=== PATIENT | female | born 1995 | race American Indian/Alaskan Native ===

== ENCOUNTER 2016-12-01 21:01 | Emergency (ER) | payer MEDICAID ==
--- NOTE | 2016-12-01 21:42 | EDM.PDOC ---
<Felipe Gonzalez - Last Filed: 12/01/16 22:11> ED HPI GENERAL MEDICAL PROBLEM - General Chief Complaint: Abdominal Pain Stated Complaint: ABDOMINAL/BACK PAIN Time Seen by Provider: 12/01/16 21:41 Source of Information: Reports: Patient History Limitations: Reports: No Limitations - History of Present Illness INITIAL COMMENTS - FREE TEXT/NARRATIVE: History of present illness: [21-year-old female comes in complaining of right upper epigastric pain. Patient indicates she has seen in an outside facility and they told her that she could be having gallbladder issues and it was important for follow-up outpatient for further diagnostic evaluation. Patient presents today indicating that the pain is intolerable.] Review of systems: As per history of present illness and below otherwise all systems reviewed and negative. Past medical history: As per history of present illness and as reviewed below otherwise noncontributory. Surgical history: As per history of present illness and as reviewed below otherwise noncontributory. Social history: No reported history of drug or alcohol abuse. Family history: As per history of present illness and as reviewed below otherwise noncontributory. Physical exam: HEENT: Atraumatic, normocephalic, pupils reactive, negative for conjunctival pallor or scleral icterus, mucous membranes moist, throat clear, neck supple, nontender, trachea midline. Lungs: Clear to auscultation, breath sounds equal bilaterally, chest nontender. Heart: S1S2, regular, negative for clicks, rubs, or JVD. Abdomen: Soft, protuberant abdomen with right upper quadrant pain worse with mild palpation. Pain originating in right upper quadrant immediately beneath the diaphragm and radiating to left upper quadrant. Negative for masses or hepatosplenomegaly. Negative for costovertebral tenderness. Pelvis: Stable nontender. Genitourinary: Deferred. Rectal: Deferred. Extremities: Atraumatic, negative for cords or calf pain. Neurovascular unremarkable. Neuro: Awake, alert, oriented. Cranial nerves II through XII unremarkable. Cerebellum unremarkable. Motor and sensory unremarkable throughout. Exam nonfocal. Diagnostics: [BC, CMP, UA, amylase, lipase CT of abdomen] Therapeutics: [IV fluid, Toradol] Impression: [] Plan: [] Definitive disposition and diagnosis as appropriate pending reevaluation and review of above. Upper Abdominal Pain Score (Numeric/FACES): 9 - Related Data Allergies Allergy/AdvReac Type Severity Reaction Status Date / Time cephalexin [From Keflex] Allergy throat Verified 12/01/16 21:17 swelling latex Allergy Swelling Verified 12/01/16 21:17 Home Meds: Home Meds . [No Known Home Meds] 12/01/16 [History] ED ROS GENERAL - Review of Systems Review Of Systems: See Below (See history of present illness) ED EXAM, GI/ABD - Physical Exam Exam: See Below (See history of present illness) Course - Vital Signs Last Recorded V/S: Last Vital Signs Temp 36.5 C 12/01/16 21:18 Pulse 74 12/01/16 21:18 Resp 16 12/01/16 21:18 BP 125/61 12/01/16 21:18 Pulse Ox 98 12/01/16 21:18 - Orders/Labs/Meds Orders: Active Orders 24 hr Category Date Time Status Abdomen Ltd [US] Stat Exams 12/02/16 00:43 Taken OB 1st Tri Ea Addl Gest [US] Stat Exams 12/02/16 00:02 Taken Labs: Laboratory Tests 12/01/16 12/01/16 12/01/16 Range/Units 21:25 21:25 21:49 WBC 13.98 H (4.0-11.0) K/uL RBC 4.31 (4.30-5.90) M/uL Hgb 13.1 (12.0-16.0) g/dL Hct 37.7 (36.0-46.0) % MCV 87.5 (80.0-98.0) fL MCH 30.4 (27.0-32.0) pg MCHC 34.7 (31.0-37.0) g/dL RDW Std Deviation 41.5 (28.0-62.0) fl RDW Coeff of Laura 13 (11.0-15.0) % Plt Count 285 (150-400) K/uL MPV 9.50 (7.40-12.00) fL Add Manual Diff YES Neutrophils % (Manual) 68 (48.0-80.0) % Lymphocytes % (Manual) 28 (16.0-40.0) % Monocytes % (Manual) 2 (0.0-15.0) % Basophils % (Manual) 2 H (0.0-1.5) % Nucleated RBC % 0.0 /100WBC Absolute Seg Neuts 9.5 H (1.4-5.7) Lymphocytes # (Manual) 3.9 H (0.6-2.4) Monocytes # (Manual) 0.3 (0.0-0.8) Basophils # (Manual) 0.3 H (0.0-0.1) Nucleated RBCs # 0 K/uL Sodium (136-146) mmol/L Potassium (3.5-5.1) mmol/L Chloride (98-110) mmol/L Carbon Dioxide (21-31) mmol/L BUN (6.0-23.0) mg/dL Creatinine (0.6-1.5) mg/dL Est Cr Clr Drug Dosing Estimated GFR (MDRD) ml/min Glucose (60-110) mg/dL Calcium (8.8-10.8) mg/dL Total Bilirubin (0.1-1.5) mg/dL AST (5-40) IU/L ALT (8-54) IU/L Alkaline Phosphatase (40-150) Total Protein (6.0-8.0) g/dL Albumin (3.5-5.0) g/dL Globulin (2.0-3.5) g/dL Albumin/Globulin Ratio (1.3-2.8) Amylase (10-90) U/L Lipase (7-80) U/L HCG, Quant mIU/mL Urine Color YELLOW Urine Appearance HAZY Urine pH 5.5 (5.0-8.0) Ur Specific [place] >= 1.030 (1.001-1.035) Urine Protein NEGATIVE (NEGATIVE) mg/dL Urine Glucose (UA) NEGATIVE (NEGATIVE) mg/dL Urine Ketones NEGATIVE (NEGATIVE) mg/dL Urine Occult Blood NEGATIVE (NEGATIVE) Urine Nitrite NEGATIVE (NEGATIVE) Urine Bilirubin NEGATIVE (NEGATIVE) Urine Urobilinogen 0.2 (<2.0) EU/dL Ur Leukocyte Esterase NEGATIVE (NEGATIVE) Urine RBC 1-2 (0-2/HPF) Urine WBC 0-2 (0-5/HPF) Ur Epithelial Cells MODERATE (NONE-FEW) Urine Bacteria FEW (NEGATIVE) Urine HCG, Qual POSITIVE (NEGATIVE) 12/01/16 12/01/16 12/01/16 Range/Units 21:49 21:49 21:49 WBC (4.0-11.0) K/uL RBC (4.30-5.90) M/uL Hgb (12.0-16.0) g/dL Hct (36.0-46.0) % MCV (80.0-98.0) fL MCH (27.0-32.0) pg MCHC (31.0-37.0) g/dL RDW Std Deviation (28.0-62.0) fl RDW Coeff of Laura (11.0-15.0) % Plt Count (150-400) K/uL MPV (7.40-12.00) fL Add Manual Diff Neutrophils % (Manual) (48.0-80.0) % Lymphocytes % (Manual) (16.0-40.0) % Monocytes % (Manual) (0.0-15.0) % Basophils % (Manual) (0.0-1.5) % Nucleated RBC % /100WBC Absolute Seg Neuts (1.4-5.7) Lymphocytes # (Manual) (0.6-2.4) Monocytes # (Manual) (0.0-0.8) Basophils # (Manual) (0.0-0.1) Nucleated RBCs # K/uL Sodium 138 (136-146) mmol/L Potassium 4.0 (3.5-5.1) mmol/L Chloride 109 (98-110) mmol/L Carbon Dioxide 19 L (21-31) mmol/L BUN 13 (6.0-23.0) mg/dL Creatinine 0.7 (0.6-1.5) mg/dL Est Cr Clr Drug Dosing TNP Estimated GFR (MDRD) > 60.0 ml/min Glucose 105 (60-110) mg/dL Calcium 8.9 (8.8-10.8) mg/dL Total Bilirubin 0.3 (0.1-1.5) mg/dL AST 14 (5-40) IU/L ALT 18 (8-54) IU/L Alkaline Phosphatase 69 (40-150) Total Protein 6.8 (6.0-8.0) g/dL Albumin 3.6 (3.5-5.0) g/dL Globulin 3.2 (2.0-3.5) g/dL Albumin/Globulin Ratio 1.1 L (1.3-2.8) Amylase 74 (10-90) U/L Lipase 31 (7-80) U/L HCG, Quant 03675.7 mIU/mL Urine Color Urine Appearance Urine pH (5.0-8.0) Ur Specific [place] (1.001-1.035) Urine Protein (NEGATIVE) mg/dL Urine Glucose (UA) (NEGATIVE) mg/dL Urine Ketones (NEGATIVE) mg/dL Urine Occult Blood (NEGATIVE) Urine Nitrite (NEGATIVE) Urine Bilirubin (NEGATIVE) Urine Urobilinogen (<2.0) EU/dL Ur Leukocyte Esterase (NEGATIVE) Urine RBC (0-2/HPF) Urine WBC (0-5/HPF) Ur Epithelial Cells (NONE-FEW) Urine Bacteria (NEGATIVE) Urine HCG, Qual (NEGATIVE) Meds: Medications Discontinued Medications Generic Name Dose Route Start Last Admin Trade Name Freq PRN Reason Stop Dose Admin Sodium Chloride 1,000 mls @ 999 mls/hr 12/01/16 21:43 12/01/16 21:50 Normal Saline IV 12/01/16 22:43 999 mls/hr STAT ONE Administration Ketorolac Tromethamine 30 mg 12/01/16 21:43 12/01/16 21:51 Toradol IVPUSH 12/01/16 21:44 30 mg ONETIME ONE Administration Departure - Departure Disposition: Home, Self-Care 01 Clinical Impression: First trimester , Cholelithiasis - Discharge Information Referrals: PCP,None [Primary Care Provider] - Forms: ED Department Discharge Additional Instructions: The following information is given to patients seen in the emergency department who are being discharged to home. This information is to outline your options for follow-up care. We provide all patients seen in our emergency department with a follow-up referral. The need for follow-up, as well as the timing and circumstances, are variable depending upon the specifics of your emergency department visit. If you don't have a primary care physician on staff, we will provide you with a referral. We always advise you to contact your personal physician following an emergency department visit to inform them of the circumstance of the visit and for follow-up with them and/or the need for any referrals to a consulting specialist. The emergency department will also refer you to a specialist when appropriate. This referral assures that you have the opportunity for followup care with a specialist. All of these measure are taken in an effort to provide you with optimal care, which includes your followup. Under all circumstances we always encourage you to contact your private physician who remains a resource for coordinating your care. When calling for followup care, please make the office aware that this follow-up is from your recent emergency room visit. If for any reason you are refused follow-up, please contact the [facility] emergency department at and asked to speak to the emergency department charge nurse. [facility] - [facility] [address] [place] [id number] [facility] - General Surgery Professional Building [address] [place] [address], [address] [place] [address] [facility] above in general surgery as discussed diet as discussed return as needed as discussed - My Orders Last 24 Hours: My Active Orders 12/02/16 00:02 OB 1st Tri Ea Addl Gest [US] Stat 12/02/16 00:43 Abdomen Ltd [US] Stat - Assessment/Plan Last 24 Hours: My Active Orders 12/02/16 00:02 OB 1st Tri Ea Addl Gest [US] Stat 12/02/16 00:43 Abdomen Ltd [US] Stat <Edson Ramos - Last Filed: 12/02/16 01:43> Departure - Departure Time of Disposition: 01:42 Condition: Good
[2016-12-01] MEDS ORDERED: Sodium Chloride 0.9% 1,000 ML IV ONE (21:43)
[2016-12-01] MEDS ORDERED: Ketorolac 30 MG/ML SDV IVPUSH ONE (21:43)
[2016-12-01 22:21] LABS: CHLORIDE,CL 109 mmol/L (98-110); SODIUM,NA 138 mmol/L (136-146)
--- NOTE | 2016-12-02 10:49 | US ---
EXAM DATE: 12/01/16 PATIENT'S AGE: 21 Patient: MORENA GUDINO Facility: [place], [place] Site . Site : 1995 Study: OB Pelvis [id number] 12:48:00 AM Ordering Physician: Doctor Norman Final Report: INDICATION: Irregular menses, positive test. TECHNIQUE: Ultrasound OB pelvis transvaginal. Real time olson scale imaging of the pelvis was performed. COMPARISON: None FINDINGS: Sonographic imaging demonstrates a single intrauterine gestation. The embryo demonstrates a regular cardiac rate measuring 179 beats per minute. The embryo` s crown rump length measurement of 22 mm corresponds to a gestational age of 8 weeks 6 days. Composite crown-rump length measurements and gestational sac measurement demonstrate estimated gestational age of 8 weeks 4 days. There is a normal appearing yolk sac. There are no gross abnormalities noted within the embryo at this early state of development. The placenta has not yet developed. The gestational sac has a normal appearance and there is no evidence of a perigestational hemorrhage. The amount of fluid within the sac appears appropriate for gestational age. Bilateral ovarian cysts are identified. Right ovarian cyst measures 3.4 centimeters. Left ovarian cyst measures 3.6 centimeters. IMPRESSION: 1. Single viable intrauterine with an estimated gestational age of 8 weeks 4 days based on composite measurements of crown rump length and gestational sac. Current ultrasound DANIELA 07/10/2017. Dictated by Daniel Espinosa MD @ 12/02/2016 1:06:09 AM Dictated by: Daniel Espinosa MD @ 12/02/2016 01:06:15 (Electronic Signature) Report Signed by Proxy. MTDD
--- NOTE | 2016-12-02 10:49 | US ---
EXAM DATE: 12/01/16 PATIENT'S AGE: 21 Patient: MORENA GUDINO Facility: [place], [place] Site . Site : 1995 Study: US Abdomen [id number] 1:03:36 AM Ordering Physician: Doctor Norman Final Report: INDICATION: Abdominal pain. TECHNIQUE: Ultrasound abdomen limited. Sonographic images of the right upper quadrant were obtained using olson-scale and color Doppler images. COMPARISON: None. FINDINGS: Liver: Visualized portions liver parenchyma echogenic relative to the adjacent right renal cortex, compatible with fatty infiltration. Gallbladder: Shadowing gallstone at the gallbladder neck, measuring 2.3 centimeters. Sonographic Kumar`s sign. Gallbladder wall thickness within normal limits, measuring 2 millimeters. No pericholecystic fluid. Common bile duct: 3 mm. Pancreas: Unremarkable. Right kidney: 12.9 cm. Normal echotexture and cortex. No masses, stones, or hydronephrosis. Vasculature: Proximal abdominal aorta and IVC are unremarkable. IMPRESSION: 1. Cholelithiasis with reported positive sonographic Kumar sign. No other imaging findings to indicate acute cholecystitis or abnormal biliary dilatation. 2. Fatty infiltration of liver. Dictated by Daniel Espinosa MD @ 12/02/2016 1:09:22 AM Dictated by: Daniel Espinosa MD @ 12/02/2016 01:09:28 (Electronic Signature) Report Signed by Proxy. DASH
== END 2016-12-02 01:55 | disposition home or self-care (01) ==
LOC: MW.ED 21:01
DX: O99.611 Diseases of the digestive system complicating pregnancy, first trimester (principal); Z88.1 Allergy status to other antibiotic agents; Z91.040 Latex allergy status; Z3A.08 8 weeks gestation of pregnancy
CPT/HCPCS: 36415; 76705; 76802; 80053; 81001; 81025; 82150; 83690; 84702; 85025; 96361; 96374; 99284; J1885; J7040; 76801; 76805; 76805-26

== ENCOUNTER 2017-01-17 17:16 | Emergency (ER) | payer MEDICAID ==
[2017-01-17] MEDS ORDERED: Lidocaine/EPINEPHrine/Tetracaine Soln 1 ML TOP ONE (17:32)
--- NOTE | 2017-01-17 17:34 | EDM.PDOC ---
ED HPI GENERAL MEDICAL PROBLEM - General Chief Complaint: Laceration Stated Complaint: PT HURT LT HAND Time Seen by Provider: 01/17/17 17:28 Source of Information: Reports: Patient History Limitations: Reports: No Limitations - History of Present Illness INITIAL COMMENTS - FREE TEXT/NARRATIVE: History of present illness: []Patient was doing dishes and did not see a knife in the sink and stabbed her left hand. She put "new skin" on it. Patient also states that she is 3 months and got a fall today and landed on her abdomen. Denies any abdominal pain, vaginal bleeding or discharge. Review of systems: As per history of present illness and below otherwise all systems reviewed and negative. Past medical history: As per history of present illness and as reviewed below otherwise noncontributory. Surgical history: As per history of present illness and as reviewed below otherwise noncontributory. Social history: No reported history of drug or alcohol abuse. Family history: As per history of present illness and as reviewed below otherwise noncontributory. Physical exam: General: Well developed, well nourished in NAD HEENT: Atraumatic, normocephalic, pupils reactive, negative for conjunctival pallor or scleral icterus, mucous membranes moist, throat clear, neck supple, nontender, trachea midline. Lungs: Clear to auscultation, breath sounds equal bilaterally, chest nontender. Heart: S1S2, regular, negative for clicks, rubs, or JVD. Abdomen: Soft, nondistended, nontender. Negative for masses or hepatosplenomegaly. Negative for costovertebral tenderness. heart tones 164 Pelvis: Stable nontender. Genitourinary: Deferred. Rectal: Deferred. Extremities: Atraumatic, negative for cords or calf pain. Neurovascular unremarkable. Neuro: Awake, alert, oriented. Cranial nerves II through XII unremarkable. Cerebellum unremarkable. Motor and sensory unremarkable throughout. Exam nonfocal. Diagnostics: Patient she was doing the dishes and did not see a knife in the sink and stabbed her hand Therapeutics: []Wound sutured Impression: []Laceration left thumb Plan: []Sutures out in 7-10 days Definitive disposition and diagnosis as appropriate pending reevaluation and review of above. 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 Musculoskeletal History: Reports: None Neurological History: Reports: None Psychiatric History: Reports: None Endocrine/Metabolic History: Reports: None Dermatologic History: Reports: Cellulitis - Infectious Disease History Infectious Disease History: Reports: None - Past Surgical History HEENT Surgical History: Reports: None Cardiovascular Surgical History: Reports: None Respiratory Surgical History: Reports: None Female Surgical History: Reports: None Social & Family History - Tobacco Use Smoking Status *Q: Never Smoker Second Hand Smoke Exposure: No ED ROS GENERAL - Review of Systems Review Of Systems: See Below (See history of present illness) ED EXAM, SKIN/RASH Exam: See Below (See history of present illness) Course - Vital Signs Last Recorded V/S: Last Vital Signs Temp 98.1 F 01/17/17 17:54 Pulse 85 01/17/17 17:54 Resp 18 01/17/17 17:54 BP 105/79 01/17/17 17:54 Pulse Ox 99 01/17/17 17:54 - Orders/Labs/Meds Meds: Medications Discontinued Medications Generic Name Dose Route Start Last Admin Trade Name Freq PRN Reason Stop Dose Admin Lidocaine/Tetracaine 1 ml 01/17/17 17:32 01/17/17 18:01 Let Soln TOP 01/17/17 17:33 1 ml ONETIME ONE Administration Octyl Cyanoacrylate 1 applic 01/17/17 17:52 01/17/17 18:00 Dermabond Advance TOP 01/17/17 17:53 1 applic ONETIME ONE Administration Departure - Departure Time of Disposition: 18:25 Disposition: Home, Self-Care 01 Condition: Good Clinical Impression: Hand laceration Qualifiers: Encounter type: initial encounter Foreign body presence: without foreign body Laterality: left Qualified Code(s): S61.412A - Laceration without foreign body of left hand, initial encounter - Discharge Information Referrals: PCP,None [Primary Care Provider] - Forms: ED Department Discharge Additional Instructions: The following information is given to patients seen in the emergency department who are being discharged to home. This information is to outline your options for follow-up care. We provide all patients seen in our emergency department with a follow-up referral. The need for follow-up, as well as the timing and circumstances, are variable depending upon the specifics of your emergency department visit. If you don't have a primary care physician on staff, we will provide you with a referral. We always advise you to contact your personal physician following an emergency department visit to inform them of the circumstance of the visit and for follow-up with them and/or the need for any referrals to a consulting specialist. The emergency department will also refer you to a specialist when appropriate. This referral assures that you have the opportunity for follow-up care with a specialist. All of these measure are taken in an effort to provide you with optimal care, which includes your follow-up. Under all circumstances we always encourage you to contact your private physician who remains a resource for coordinating your care. When calling for follow-up care, please make the office aware that this follow-up is from your recent emergency room visit. If for any reason you are refused follow-up, please contact the [facility] Emergency Department at and asked to speak to the emergency department charge nurse. Sutures out in 7-10 days Tylenol Motrin for pain keep dry for 24 hours follow up with her primary care as needed return here if symptoms worsen or change. [facility] [address] [place] [id number]
[2017-01-17] MEDS ORDERED: Octyl 2-Cyanoacrylate 1 Tube TOP ONE (17:52)
[2017-01-17] MEDS ORDERED: Bacitracin Oint 1 GM U/D Packet TOP ONE (18:31)
== END 2017-01-17 18:43 | disposition home or self-care (01) ==
LOC: MW.ED 17:16
DX: O9A.211 Injury, poisoning and certain other consequences of external causes complicating pregnancy, first trimester (principal); S61.012A Laceration without foreign body of left thumb without damage to nail, initial encounter; Z91.040 Latex allergy status; Z88.1 Allergy status to other antibiotic agents; W26.0XXA Contact with knife, initial encounter
CPT/HCPCS: 12001; 99283; A9270

== ENCOUNTER 2017-01-22 00:49 | Emergency (ER) | payer MEDICAID ==
[2017-01-22] MEDS ORDERED: Acetaminophen/Codeine 300-30 MG Tab PO ONE (01:15)
--- NOTE | 2017-01-22 01:19 | EDM.PDOC ---
ED HPI GENERAL MEDICAL PROBLEM - General Chief Complaint: Headache Stated Complaint: MIRGRAIN HEADACHES Time Seen by Provider: 01/22/17 01:02 - History of Present Illness INITIAL COMMENTS - FREE TEXT/NARRATIVE: HISTORY AND PHYSICAL: History of present illness: The patient is a 21-year-old female who presents to the ER with a frontal headache that ongoing for last 2-3 days. It is not been associated with any trauma and has no posterior component no neck pain no nausea no vomiting no photophobia and she has no diagnosed history of headache syndromes. The patient is 4 months and follows with [facility] and has not spoken to them about this problem. She says she tried [id number] Tylenol and it has not worked. She says she is having a lot of sinus congestion and drainage but no cough. The patient states that from a standpoint she doesn't have any vaginal bleeding or abdominal pain. Review of systems: As per history of present illness and below otherwise all systems reviewed and negative. Past medical history: As per history of present illness and as reviewed below otherwise noncontributory. Surgical history: As per history of present illness and as reviewed below otherwise noncontributory. Social history: No reported history of drug or alcohol abuse. Family history: As per history of present illness and as reviewed below otherwise noncontributory. Physical exam: Gen.: Well-developed well-nourished female who is not photophobic and has nasal quality to voice. She is overweight HEENT: Atraumatic, normocephalic, pupils reactive, negative for conjunctival pallor or scleral icterus, mucous membranes moist, throat clear, neck supple, nontender, trachea midline. TMs are dulled and there is copious cerumen bilaterally in the ears. The patient does have maxillary sinus tenderness bilaterally and boggy turbinates bilaterally. Lungs: Clear to auscultation, breath sounds equal bilaterally, chest nontender. Heart: S1S2, regular, negative for clicks, rubs, or JVD. Abdomen: Soft, nondistended, nontender. NABS Pelvis: Deferred Genitourinary: Deferred. Rectal: Deferred. Extremities: Atraumatic, negative for cords or calf pain. Neurovascular unremarkable. Neuro: Awake, alert, oriented. Cranial nerves II through XII unremarkable. Cerebellum unremarkable. Motor and sensory unremarkable throughout. Exam nonfocal. Diagnostics: [] Therapeutics: Tylenol with codeine 0112: I discussed this case with the patient's OB MAnna. Dr. Chavez who agrees that I should go ahead and treat the sinusitis with antibiotics and nasal spray and also she is agreeable to give the patient a few Tylenol with Codeine to help with her headache pain. I will stress the need for follow-up in the clinic. Impression: Frontal headache/sinusitis, and trimester stable Definitive disposition and diagnosis as appropriate pending reevaluation and review of above. Headache Pain Score (Numeric/FACES): 8 - Related Data Allergies Allergy/AdvReac Type Severity Reaction Status Date / Time latex Allergy Swelling Verified 01/22/17 01:04 cephalexin [From Keflex] AdvReac throat Verified 01/22/17 01:04 swelling Home Meds: Home Meds [id number]/Iron Fumarate/FA/DSS [ 19 Tablet] 1 tab PO DAILY 01/17/17 [ History] Past Medical History HEENT History: Reports: None Cardiovascular History: Reports: None Respiratory History: Reports: None Gastrointestinal History: Reports: None Genitourinary History: Reports: None BLOCK PLACER History: Reports: None Musculoskeletal History: Reports: None Neurological History: Reports: None Psychiatric History: Reports: None Endocrine/Metabolic History: Reports: None Hematologic History: Reports: None Immunologic History: Reports: None Oncologic (Cancer) History: Reports: None Dermatologic History: Reports: Cellulitis - Infectious Disease History Infectious Disease History: Reports: None - Past Surgical History Head Surgeries/Procedures: Reports: None HEENT Surgical History: Reports: None Cardiovascular Surgical History: Reports: None Respiratory Surgical History: Reports: None Female Surgical History: Reports: None Musculoskeletal Surgical History: Reports: Other (See Below) Other Musculoskeletal Surgeries/Procedures:: Hx of surgery for cellulitis, states they thought it was in her bone. Social & Family History - Family History Family Medical History: Noncontributory - Tobacco Use Smoking Status *Q: Former Smoker Used Tobacco, but Quit: Yes Month Tobacco Last Used: 09/2016 Second Hand Smoke Exposure: No - Caffeine Use Caffeine Use: Reports: Coffee - Recreational Drug Use Recreational Drug Use: No ED ROS GENERAL - Review of Systems Review Of Systems: ROS reveals no pertinent complaints other than HPI. ED EXAM, GENERAL - Physical Exam Exam: See Below (See dictation) Course - Vital Signs Last Recorded V/S: Last Vital Signs Temp 36.6 C 01/22/17 01:02 Pulse 98 01/22/17 01:02 Resp 12 01/22/17 01:02 BP 138/59 L 01/22/17 01:02 Pulse Ox 97 01/22/17 01:02 - Orders/Labs/Meds Orders: Active Orders 24 hr Category Date Time Status Acetaminophen/Codeine [Tylenol with Codeine No.3 300MG/ Med 01/22/17 01:15 Once 30MG] 1 tab PO ONETIME ONE Departure - Departure Time of Disposition: 18 Disposition: Home, Self-Care 01 Condition: Good Clinical Impression: Sinus headache - Discharge Information Referrals: PCP,None [Primary Care Provider] - Additional Instructions: The following information is given to patients seen in the emergency department who are being discharged to home. This information is to outline your options for follow-up care. We provide all patients seen in our emergency department with a follow-up referral. The need for follow-up, as well as the timing and circumstances, are variable depending upon the specifics of your emergency department visit. If you don't have a primary care physician on staff, we will provide you with a referral. We always advise you to contact your personal physician following an emergency department visit to inform them of the circumstance of the visit and for follow-up with them and/or the need for any referrals to a consulting specialist. The emergency department will also refer you to a specialist when appropriate. This referral assures that you have the opportunity for followup care with a specialist. All of these measure are taken in an effort to provide you with optimal care, which includes your followup. Under all circumstances we always encourage you to contact your private physician who remains a resource for coordinating your care. When calling for followup care, please make the office aware that this follow-up is from your recent emergency room visit. If for any reason you are refused follow-up, please contact the [facility] emergency department at and ask to speak to the emergency department charge nurse. [facility] [address] [place] [address] [phone] Please push hydration and use all medications as prescribed. You have been given antibiotics. From [facility], Augmentin, for this sinus infection as well as Tylenol with codeine to use for your headache pain. Please also purchase [id number] Flonase to use to help with the swelling in your nasal passages and permit drainage of the fluid. You may also use over-the- counter Benadryl when you're at home to help with decongesting. Please call the clinic Monday morning to check in with them and return to ER as needed and as discussed - My Orders Last 24 Hours: My Active Orders 01/22/17 01:15 Acetaminophen/Codeine [Tylenol with Codeine No.3 300MG/30MG] 1 tab PO ONETIME ONE - Assessment/Plan Last 24 Hours: My Active Orders 01/22/17 01:15 Acetaminophen/Codeine [Tylenol with Codeine No.3 300MG/30MG] 1 tab PO ONETIME ONE
== END 2017-01-22 01:48 | disposition home or self-care (01) ==
LOC: MW.ED 00:49
DX: O99.512 Diseases of the respiratory system complicating pregnancy, second trimester (principal); J32.1 Chronic frontal sinusitis; Z91.040 Latex allergy status; Z88.1 Allergy status to other antibiotic agents; Z87.891 Personal history of nicotine dependence
CPT/HCPCS: 99283; A9270; 99284

== ENCOUNTER 2017-02-13 19:58 | Emergency (ER) | payer MEDICAID ==
--- NOTE | 2017-02-13 20:45 | EDM.PDOC ---
ED HPI GENERAL MEDICAL PROBLEM - General Chief Complaint: Headache Stated Complaint: HEADACHE Time Seen by Provider: 02/13/17 20:37 - History of Present Illness INITIAL COMMENTS - FREE TEXT/NARRATIVE: HISTORY AND PHYSICAL: History of present illness: Patient 21-year-old female first trimester and chronic headache she denies abdominal pain cramping vaginal bleeding or other complaints or concern relates to 2-3 months of intermittent headache for which Tylenol has not improved there's been no trauma no neurological symptoms she has seen her OB/ [facility] for this problem and remains somewhat frustrated Review of systems: As per history of present illness and below otherwise all systems reviewed and negative. Past medical history: As per history of present illness and as reviewed below otherwise noncontributory. Surgical history: As per history of present illness and as reviewed below otherwise noncontributory. Social history: No reported history of drug or alcohol abuse. Family history: As per history of present illness and as reviewed below otherwise noncontributory. Physical exam: HEENT: Atraumatic, normocephalic, pupils reactive, negative for conjunctival pallor or scleral icterus, mucous membranes moist, throat clear, neck supple, nontender, trachea midline. Lungs: Clear to auscultation, breath sounds equal bilaterally, chest nontender. Heart: S1S2, regular, negative for clicks, rubs, or JVD. Abdomen: Soft, nondistended, nontender. Negative for masses or hepatosplenomegaly. Negative for costovertebral tenderness. Pelvis: Stable nontender. Genitourinary: Deferred. Rectal: Deferred. Extremities: Atraumatic, negative for cords or calf pain. Neurovascular unremarkable. Neuro: Awake, alert, oriented. Cranial nerves II through XII unremarkable. Cerebellum unremarkable. Motor and sensory unremarkable throughout. Exam nonfocal. Diagnostics: None Therapeutics: None Impression: #1 first trimester #2 chronic headache Definitive disposition and diagnosis as appropriate pending reevaluation and review of above. 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 History: Reports: None Musculoskeletal History: Reports: None Neurological History: Reports: None Psychiatric History: Reports: None Endocrine/Metabolic History: Reports: None Hematologic History: Reports: None Immunologic History: Reports: None Oncologic (Cancer) History: Reports: None Dermatologic History: Reports: Cellulitis - Infectious Disease History Infectious Disease History: Reports: None - Past Surgical History Head Surgeries/Procedures: Reports: None HEENT Surgical History: Reports: None Cardiovascular Surgical History: Reports: None Respiratory Surgical History: Reports: None Female Surgical History: Reports: None Musculoskeletal Surgical History: Reports: Other (See Below) Other Musculoskeletal Surgeries/Procedures:: Hx of surgery for cellulitis, states they thought it was in her bone. Social & Family History - Family History Family Medical History: Noncontributory - Tobacco Use Smoking Status *Q: Never Smoker Used Tobacco, but Quit: Yes Month Tobacco Last Used: 09/2016 Second Hand Smoke Exposure: No - Caffeine Use Caffeine Use: Reports: None - Recreational Drug Use Recreational Drug Use: No ED ROS GENERAL - Review of Systems Review Of Systems: ROS reveals no pertinent complaints other than HPI. ED EXAM, GENERAL - Physical Exam Exam: See Below (See dictation) Course - Vital Signs Last Recorded V/S: Last Vital Signs Temp 36.4 C 02/13/17 20:24 Pulse 91 02/13/17 20:24 Resp 18 02/13/17 20:24 BP 127/58 L 02/13/17 20:24 Pulse Ox 98 02/13/17 20:24 Departure - Departure Time of Disposition: 20:44 Disposition: Home, Self-Care 01 Condition: Good Clinical Impression: First trimester , Chronic headaches - Discharge Information Referrals: PCP,None [Primary Care Provider] - Additional Instructions: The following information is given to patients seen in the emergency department who are being discharged to home. This information is to outline your options for follow-up care. We provide all patients seen in our emergency department with a follow-up referral. The need for follow-up, as well as the timing and circumstances, are variable depending upon the specifics of your emergency department visit. If you don't have a primary care physician on staff, we will provide you with a referral. We always advise you to contact your personal physician following an emergency department visit to inform them of the circumstance of the visit and for follow-up with them and/or the need for any referrals to a consulting specialist. The emergency department will also refer you to a specialist when appropriate. This referral assures that you have the opportunity for followup care with a specialist. All of these measure are taken in an effort to provide you with optimal care, which includes your followup. Under all circumstances we always encourage you to contact your private physician who remains a resource for coordinating your care. When calling for followup care, please make the office aware that this follow-up is from your recent emergency room visit. If for any reason you are refused follow-up, please contact the [facility] emergency department at and asked to speak to the emergency department charge nurse. 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
== END 2017-02-13 20:55 | disposition home or self-care (01) ==
LOC: MW.ED 19:58
DX: O99.89 Other specified diseases and conditions complicating pregnancy, childbirth and the puerperium (principal); R51 Headache; Z91.040 Latex allergy status; Z88.8 Allergy status to other drugs, medicaments and biological substances; Z87.891 Personal history of nicotine dependence
CPT/HCPCS: 99283

== ENCOUNTER 2017-03-09 11:37 | Emergency (ER) | payer MEDICAID ==
--- NOTE | 2017-03-09 11:55 | EDM.PDOC ---
ED HPI GENERAL MEDICAL PROBLEM - General Stated Complaint: FALL Time Seen by Provider: 03/09/17 11:45 Source of Information: Reports: Patient History Limitations: Reports: No Limitations - History of Present Illness INITIAL COMMENTS - FREE TEXT/NARRATIVE: HISTORY AND PHYSICAL: History of present illness: Patient is a 21-year-old female who is brought to the emergency room by EMS from a local residential. Patient states that she started having back pain and cramping when she fell to the ground hitting the forehead portion of her scalp. She denies any loss of consciousness or headache pain. She is currently [address] Duffy at [facility]. Over the past several weeks she has had some low back pain and cramping with light vaginal spotting. She states that she has seen the "residential nurse" several times about this and she has consulted/been in close communication with her [employer] provider frequently. Patient has received IV fluids due to her complaints over the past few weeks due to dehydration. Today the pain became much worse, but has not had any bleeding. Today she felt intense pain which resulted in her fall. She denies any chest pain, shortness of breath, abdominal pain, nausea, vomiting or diarrhea. She denies any fever, chills, change in vision. She denies any dysuria or bowel or bladder concerns. Upon arrival the patient is C-collared and has law enforcement with her. Review of systems: As per history of present illness and below otherwise all systems reviewed and negative. Past medical history: As per history of present illness and as reviewed below otherwise noncontributory. Surgical history: As per history of present illness and as reviewed below otherwise noncontributory. Social history: No reported history of drug or alcohol abuse. Family history: As per history of present illness and as reviewed below otherwise noncontributory. Physical exam: HEENT: Atraumatic, normocephalic, pupils reactive, negative for conjunctival pallor or scleral icterus, mucous membranes moist, throat clear, neck supple, nontender, trachea midline. Small localized area of redness noted to the left upper forehead minimal soft tissue swelling. Lungs: Clear to auscultation, breath sounds equal bilaterally, chest nontender. Heart: S1S2, regular rate and rhythm without murmurs Abdomen: Soft, nondistended, nontender. Currently 5 months . Negative for masses or hepatosplenomegaly. Negative for costovertebral tenderness. Pelvis: Stable nontender. Genitourinary: Deferred. Rectal: Deferred. Extremities: Atraumatic, negative for cords or calf pain. Neurovascular unremarkable. Neuro: Awake, alert, oriented. Cranial nerves II through XII unremarkable. Cerebellum unremarkable. Motor and sensory unremarkable throughout. Exam nonfocal. Upon arrival of the patient is C-collared and alert and oriented. Patient does have localized area of erythema and soft tissue swelling to the left upper forehead. Dr. Ramos and myself evaluated her. She has no cervical spine tenderness and c-collar was removed. No back pain with palpation. Patient is able to fall extremities without pain, difficulty or numbness and tingling. heart tones were done at the bedside and the rate from 150-160 bpm. Vital signs are stable and have been reviewed by me. She is cleared from a trauma standpoint and will be sent up to OB for further evaluation. Diagnostics: Bedside heart tones Therapeutics: [] Impression: #1 Fall #2 Second trimester Plan: Patient is to be transferred to OB unit for further evaluation regarding her back pain and cramping. She is cleared from a trauma standpoint from the emergency room. Definitive disposition and diagnosis as appropriate pending reevaluation and review of above. 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 Musculoskeletal History: Reports: None Neurological History: Reports: None Psychiatric History: Reports: None Endocrine/Metabolic History: Reports: None Hematologic History: Reports: None Immunologic History: Reports: None Oncologic (Cancer) History: Reports: None Dermatologic History: Reports: Cellulitis - Infectious Disease History Infectious Disease History: Reports: None - Past Surgical History Head Surgeries/Procedures: Reports: None HEENT Surgical History: Reports: None Cardiovascular Surgical History: Reports: None Respiratory Surgical History: Reports: None Female Surgical History: Reports: None Musculoskeletal Surgical History: Reports: Other (See Below) Other Musculoskeletal Surgeries/Procedures:: Hx of surgery for cellulitis, states they thought it was in her bone. Social & Family History - Family History Family Medical History: Noncontributory - Tobacco Use Smoking Status *Q: Never Smoker Used Tobacco, but Quit: Yes Month Tobacco Last Used: 09/2016 Second Hand Smoke Exposure: No - Caffeine Use Caffeine Use: Reports: None - Recreational Drug Use Recreational Drug Use: No ED ROS GENERAL - Review of Systems Review Of Systems: ROS reveals no pertinent complaints other than HPI. ED EXAM, GENERAL - Physical Exam Exam: See Below (See dictation) Departure - Departure Time of Disposition: 11:55 Disposition: Home, Self-Care 01 Clinical Impression: Second trimester Fall Qualifiers: Encounter type: initial encounter Qualified Code(s): W19.XXXA - Unspecified fall, initial encounter - Discharge Information Additional Instructions: My general discharge The following information is given to patients seen in the emergency department who are being discharged to home. This information is to outline your options for follow-up care. We provide all patients seen in our emergency department with a follow-up referral. The need for follow-up, as well as the timing and circumstances, are variable depending upon the specifics of your emergency department visit. If you don't have a primary care physician on staff, we will provide you with a referral. We always advise you to contact your personal physician following an emergency department visit to inform them of the circumstance of the visit and for follow-up with them and/or the need for any referrals to a consulting specialist. The emergency department will also refer you to a specialist when appropriate. This referral assures that you have the opportunity for follow-up care with a specialist. All of these measure are taken in an effort to provide you with optimal care, which includes your follow-up. Under all circumstances we always encourage you to contact your private physician who remains a resource for coordinating your care. When calling for follow-up care, please make the office aware that this follow-up is from your recent emergency room visit. If for any reason you are refused follow-up, please contact the [facility] Emergency Department at and asked to speak to the emergency department charge nurse. [facility] [address] [place] [id number] You has been cleared from a trauma standpoint from the emergency room. Please go directly to OB for further evaluation of OBGYN
== END 2017-03-09 12:14 | disposition still patient (30) ==
LOC: MW.ED 11:37
DX: O99.89 Other specified diseases and conditions complicating pregnancy, childbirth and the puerperium (principal); M54.9 Dorsalgia, unspecified; R22.0 Localized swelling, mass and lump, head; Z91.040 Latex allergy status; Z88.1 Allergy status to other antibiotic agents; Z3A.01 Less than 8 weeks gestation of pregnancy; W19.XXXA Unspecified fall, initial encounter
CPT/HCPCS: 99284

== ENCOUNTER 2017-03-30 17:23 | Observation (INO) | payer MEDICAID ==
[2017-03-30] MEDS ORDERED: Acetaminophen/oxyCODONE 325-5 MG Tab PO ONE (18:46)
[2017-03-30] MEDS ORDERED: Ibuprofen 400 MG Tab PO ONE (23:30)
[2017-03-30] MEDS ORDERED: Acetaminophen 325 MG Tab PO PRN (23:30)
[2017-03-31] MEDS ORDERED: hydrOXYzine Pamoate 25 MG Cap PO PRN (00:07)
== END 2017-03-31 00:46 | disposition home or self-care (01) ==
LOC: MW.OBCHECK 17:23 → MW.OB 17:51 → MW.OBCHECK 18:04 → MW.OB 18:05
PROVIDERS: ADMIT Obstetrics & Gynecology; ATTEND Obstetrics & Gynecology
DX: O26.892 Other specified pregnancy related conditions, second trimester (principal); M54.9 Dorsalgia, unspecified; Z3A.26 26 weeks gestation of pregnancy; Z79.899 Other long term (current) drug therapy; Z88.1 Allergy status to other antibiotic agents; Z91.040 Latex allergy status
CPT/HCPCS: 36415; 59025; 85025; A9270; G0378

== ENCOUNTER 2017-06-12 16:40 | Inpatient (IN) | payer MEDICAID ==
[2017-06-12] MEDS ORDERED: Water For Irrigation,Sterile 1,000 ML Container IRR PRN (17:06)
[2017-06-12] MEDS ORDERED: Lidocaine 1% 50 ML MDV INJECT PRN (17:06)
[2017-06-12] MEDS ORDERED: Tranexamic Acid 1,000 MG in Sodium Chloride 0.9% 100 ML IV PRN (17:06)
[2017-06-12] MEDS ORDERED: Misoprostol 200 MCG Tab PO PRN (17:06)
[2017-06-12] MEDS ORDERED: Sodium Chloride 0.9% 2.5 ML Syringe FLUSH PRN ×2 (17:06→17:56)
[2017-06-12] MEDS ORDERED: Methylergonovine 0.2 MG/1 ML Amp IM PRN (17:06)
[2017-06-12] MEDS ORDERED: Nalbuphine 10 MG/1 ML Vial IVPUSH PRN (17:06)
[2017-06-12] MEDS ORDERED: Carboprost Tromethamine 250 MCG/1 ML Amp IM PRN (17:06)
[2017-06-12] MEDS ORDERED: Sodium Chloride 0.9% 10 ML Syringe FLUSH PRN ×2 (17:06→17:56)
[2017-06-12] MEDS ORDERED: Butorphanol 1 MG/ML SDV IVPUSH PRN (17:06)
[2017-06-12] MEDS ORDERED: Oxytocin/0.9 % Sodium Chloride 30 UNIT/500 ML BAG IV SCH ×2 (17:15→18:00)
[2017-06-12] MEDS ORDERED: Terbutaline 1 MG/ML SDV SUBCUT PRN (17:52)
[2017-06-12] MEDS ORDERED: Magnesium Sulfate/Water 4 GM in Premix Bag 1 BAG IV ONE (17:56)
[2017-06-12] MEDS ORDERED: Calcium Gluconate 10% 1 GM/10 ML SDV IVPUSH PRN (17:56)
[2017-06-12] MEDS ORDERED: Sodium Chloride 0.9% 1,000 ML IV SCH (18:00)
[2017-06-12] MEDS ORDERED: Misoprostol 25 MCG (1/4 of 100 MCG) Tab VAG SCH (18:00)
[2017-06-12] MEDS: Magnesium Sulfate/Water 40 GM/1,000 ML BAG IV SCH (18:52)
[2017-06-12 19:06] LABS: CHLORIDE,CL 106 mmol/L (98-107); SODIUM,NA 137 mmol/L (136-145)
[2017-06-12] MEDS: Lactated Ringers 1,000 ML IV SCH (19:06)
[2017-06-12] MEDS: Acetaminophen 500 MG Tab PO PRN (20:17)
[2017-06-12] MEDS: Misoprostol 25 MCG (1/4 of 100 MCG) Tab VAG PRN (23:20)
[2017-06-13] MEDS: Misoprostol 25 MCG (1/4 of 100 MCG) Tab VAG PRN (03:42)
[2017-06-13] MEDS: Acetaminophen 500 MG Tab PO PRN (05:07)
[2017-06-13] MEDS: Magnesium Sulfate/Water 40 GM/1,000 ML BAG IV SCH (16:17)
[2017-06-13] MEDS ORDERED: Ropivacaine 0.2% 2 MG/ML 20 ML SDV ONE (19:37)
--- NOTE | 2017-06-13 20:19 | PCM.PREANE ---
Preanesthetic Assessment - Procedure Proposed Procedure: labor epidural - Anesthesia/Transfusion/Family Hx Anesthesia History: Prior Anesthesia Without Reaction Family History of Anesthesia Reaction: No - Review of Systems Other: Reports: None - Physical Assessment Height: 5 ft 8.11 in Weight: 136.078 kg ASA Class: 3 Mental Status: Alert & Oriented x3 Airway Class: Mallampati = 2 Dentition: Reports: Normal Dentition Thyro-Mental Finger Breadths: 3 Mouth Opening Finger Breadths: 3 ROM/Head Extension: Full - Lab Values: Laboratory Last Values WBC 12.01 K/uL (4.0-11.0) H 06/12/17 17:25 RBC 4.62 M/uL (4.30-5.90) 06/12/17 17:25 Hgb 13.5 g/dL (12.0-16.0) 06/12/17 17:25 Hct 39.7 % (36.0-46.0) 06/12/17 17:25 MCV 85.9 fL (80.0-98.0) 06/12/17 17:25 MCH 29.2 pg (27.0-32.0) 06/12/17 17:25 MCHC 34.0 g/dL (31.0-37.0) 06/12/17 17:25 RDW Std Deviation 47.6 fl (28.0-62.0) 06/12/17 17:25 RDW Coeff of Laura 15 % (11.0-15.0) 06/12/17 17:25 Plt Count 265 K/uL (150-400) 06/12/17 17:25 MPV 9.90 fL (7.40-12.00) 06/12/17 17:25 Nucleated RBC % 0.0 /100WBC 06/12/17 17:25 Nucleated RBCs # 0 K/uL 06/12/17 17:25 Sodium 137 mmol/L (136-145) 06/12/17 17:35 Potassium 4.2 mmol/L (3.5-5.1) 06/12/17 17:35 Chloride 106 mmol/L (98-107) 06/12/17 17:35 Carbon Dioxide 21.3 mmol/L (21.0-32.0) 06/12/17 17:35 BUN 9 mg/dL (7.0-18.0) 06/12/17 17:35 Creatinine 0.6 mg/dL (0.6-1.0) 06/12/17 17:35 Est Cr Clr Drug Dosing 150.88 mL/min 06/12/17 17:35 Estimated GFR (MDRD) > 60.0 ml/min 06/12/17 17:35 Glucose 154 mg/dL (74-106) H 06/12/17 17:35 Uric Acid 3.7 mg/dL (2.6-7.2) 06/12/17 17:35 Calcium 8.9 mg/dL (8.5-10.1) 06/12/17 17:35 Magnesium 3.6 mg/dL (1.5-2.0) H 06/13/17 16:01 Total Bilirubin 0.1 mg/dL (0.2-1.0) L 06/12/17 17:35 AST 14 IU/L (15-37) L 06/12/17 17:35 ALT 16 IU/L (14-63) 06/12/17 17:35 Alkaline Phosphatase 161 U/L (46-116) H 06/12/17 17:35 Total Protein 6.4 g/dL (6.4-8.2) 06/12/17 17:35 Albumin 2.2 g/dL (3.4-5.0) L 06/12/17 17:35 Globulin 4.2 g/dL (2.0-3.5) H 06/12/17 17:35 Albumin/Globulin Ratio 0.5 (1.3-2.8) L 06/12/17 17:35 Blood Type O POSITIVE 06/12/17 17:25 Antibody Screen NEGATIVE 06/12/17 17:25 - Allergies Allergies/Adverse Reactions: Allergies Allergy/AdvReac Type Severity Reaction Status Date / Time latex Allergy Rash Verified 04/26/17 00:27 cephalexin [From Keflex] AdvReac throat Verified 04/26/17 00:27 swelling - Blood Blood Available: Yes Product(s) Available: PRBC - Acknowledgements Anesthesia Type Planned: Epidural Pt an Appropriate Candidate for the Planned Anesthesia: Yes Alternatives and Risks of Anesthesia Discussed w Pt/Guardian: Yes Pt/Guardian Understands and Agrees with Anesthesia Plan: Yes PreAnesthesia Questionnaire - Past Health History Medical/Surgical History: Denies Medical/Surgical History HEENT History: Reports: None Cardiovascular History: Reports: None Respiratory History: Reports: None Gastrointestinal History: Reports: None Genitourinary History: Reports: None BUSINESS DEVELOPER History: Reports: None Musculoskeletal History: Reports: None Neurological History: Reports: None Psychiatric History: Reports: None Endocrine/Metabolic History: Reports: None Hematologic History: Reports: None Immunologic History: Reports: None Oncologic (Cancer) History: Reports: None Dermatologic History: Reports: Cellulitis - Infectious Disease History Infectious Disease History: Reports: None - Past Surgical History Head Surgeries/Procedures: Reports: None HEENT Surgical History: Reports: None Cardiovascular Surgical History: Reports: None Respiratory Surgical History: Reports: None Female Surgical History: Reports: None Musculoskeletal Surgical History: Reports: Other (See Below) Other Musculoskeletal Surgeries/Procedures:: Hx of surgery for cellulitis, states they thought it was in her bone. - SUBSTANCE USE Smoking Status *Q: Never Smoker Second Hand Smoke Exposure: No Recreational Drug Use History: No - HOME MEDS Home Medications: Home Meds [id number]/Iron Fumarate/FA/DSS [ 19 Tablet] 1 tab PO DAILY 01/17/17 [ History] - CURRENT (IN HOUSE) MEDS Current Meds: Current Medications Acetaminophen (Tylenol Extra Strength) 1,000 mg PO Q6H PRN PRN Reason: Headache Last Admin: 06/13/17 05:07 Dose: 1,000 mg Butorphanol Tartrate (Stadol) 1 mg IVPUSH Q1H PRN PRN Reason: Pain Last Admin: 06/13/17 16:24 Dose: 1 mg Calcium Gluconate (Calcium Gluconate) 1 gm IVPUSH ASDIRECTED PRN PRN Reason: respiratory distress Carboprost Tromethamine (Hemabate Ds) 250 mcg IM ASDIRECTED PRN PRN Reason: Post Hemorrhage Lactated Ringer's (Ringers, Lactated) 1,000 mls @ 150 mls/hr IV ASDIRECTED SKY Last Admin: 06/12/17 19:06 Dose: 10 mls/hr Oxytocin/Sodium Chloride (Oxytocin 30 Unit/500 Ml-Ns) 30 unit in 500 mls @ 500 mls/hr IV TITRATE SKY Tranexamic Acid 1,000 mg/ (Sodium Chloride) 110 mls @ 660 mls/hr IV ONETIME PRN PRN Reason: Bleeding Vancomycin HCl 1 gm/ Sodium (Chloride) 250 mls @ 166 mls/hr IV Q12H [facility] Last Admin: 06/13/17 08:05 Dose: 166 mls/hr Oxytocin/Sodium Chloride (Oxytocin 30 Unit/500 Ml-Ns) 30 unit in 500 mls @ 2 mls/hr IV TITRATE [facility]; Protocol Last Titration: 06/13/17 17:50 Dose: 20 munits/min, 20 mls/hr Magnesium Sulfate (Magnesium Sulfate 40 Gm In Water 1000 Ml) 40 gm in 1,000 mls @ 50 mls/hr IV ASDIRECTED SKY Last Admin: 06/13/17 16:17 Dose: 2 gm/hr, 50 mls/hr Sodium Chloride (Normal Saline) 1,000 mls @ 10 mls/hr IV ASDIRECTED [facility] Lidocaine HCl (Xylocaine 1%) 50 ml INJECT .ONCE PRN PRN Reason: Laceration repair Methylergonovine Maleate (Methergine) 0.2 mg IM ASDIRECTED PRN PRN Reason: Post Hemorrhage Misoprostol (Cytotec) 200 mcg PO .ONCE PRN PRN Reason: Post Hemorrhage Misoprostol (Cytotec) 25 mcg VAG .ONCE SKY Last Admin: 06/12/17 18:57 Dose: 25 mcg Misoprostol (Cytotec) 25 mcg VAG Q4H PRN PRN Reason: Cervical Ripening Last Admin: 06/13/17 03:42 Dose: 25 mcg Nalbuphine HCl (Nubain) 10 mg IVPUSH Q1H PRN PRN Reason: Pain (severe 7-10) Sodium Chloride (Saline Flush) 10 ml FLUSH ASDIRECTED PRN PRN Reason: Keep Vein Open Sodium Chloride (Saline Flush) 2.5 ml FLUSH ASDIRECTED PRN PRN Reason: Keep Vein Open Sodium Chloride (Saline Flush) 10 ml FLUSH ASDIRECTED PRN PRN Reason: Keep Vein Open Sodium Chloride (Saline Flush) 2.5 ml FLUSH ASDIRECTED PRN PRN Reason: Keep Vein Open Sterile Water (Sterile Water For Irrigation) 1,000 ml IRR ASDIRECTED PRN PRN Reason: delivery Terbutaline Sulfate (Brethine) 0.25 mg SUBCUT ASDIRECTED PRN PRN Reason: Tacysystole Discontinued Medications Magnesium Sulfate 4 gm/ Premix 100 mls @ 300 mls/hr IV ONETIME ONE Stop: 06/12/17 18:15 Last Admin: 06/12/17 18:32 Dose: 300 mls/hr Fentanyl/Bupivacaine HCl ([id number] 2 Mcg/Ml-0.125%) Confirm Administered Dose 100 mls @ as directed EP .STK-MED ONE Stop: 06/13/17 19:38 Ropivacaine (Naropin 0.2%) Confirm Administered Dose 20 ml .ROUTE .STK-MED ONE Stop: 06/13/17 19:38
[2017-06-13] MEDS: Lactated Ringers 1,000 ML IV SCH (20:21)
[2017-06-14] MEDS ORDERED: Benzocaine/Menthol 20%-0.5% Spray 78 GM Cannister TOP PRN (01:36)
[2017-06-14] MEDS ORDERED: Ibuprofen 400 MG Tab PO PRN (01:36)
[2017-06-14] MEDS ORDERED: Bisacodyl 10 MG Supp RECTAL PRN (01:36)
[2017-06-14] MEDS ORDERED: oxyCODONE 5 MG Tab PO PRN (01:36)
[2017-06-14] MEDS ORDERED: Docusate Sodium 100 MG Cap PO PRN (01:36)
[2017-06-14] MEDS ORDERED: Witch Hazel Medicated Pads 40/Jar TOP PRN (01:36)
[2017-06-14] MEDS ORDERED: Acetaminophen 500 MG Tab PO PRN (01:36)
[2017-06-14] MEDS ORDERED: Lanolin 100% Cream 7 GM Tube TOP PRN (01:36)
[2017-06-14] MEDS: Acetaminophen 500 MG Tab PO PRN ×2 (01:52→22:54)
--- NOTE | 2017-06-14 03:02 | OR ---
SURGEON: Terrie Lagos MD DATE OF PROCEDURE: 06/14/2017 CAR DRIVER: Brielle Colon, medical student PREOPERATIVE DIAGNOSES: 1. Intrauterine at 36 weeks and 6 days' gestation. 2. Preeclampsia. 3. Group B Streptococcus positive. POSTOPERATIVE DIAGNOSES: 1. Intrauterine at 36 weeks and 6 days' gestation. 2. Preeclampsia. 3. Group B Streptococcus positive. 4. Delivered. PROCEDURES: 1. Induction of labor for preeclampsia. 2. Spontaneous vaginal delivery. 3. Repair of first-degree laceration. ANESTHESIA: Epidural. ESTIMATED BLOOD LOSS: 150 mL. COMPLICATIONS: None. DISPOSITION: Mother and baby stable in Labor and Delivery room, bonding. FINDINGS: Male infant, weight 3390 g, scores of 7 and 9 at 1 and 5 minutes respectively. Grossly normal placenta with 3-vessel cord. First-degree vaginal laceration at 7 o'clock position. BRIEF HISTORY: The patient is a 21-year-old primigravida, who was admitted on the 12 of June at 36 weeks and 4 days from the clinic for induction of labor secondary to preeclampsia. The patient had severe range blood pressures, 160s over 100s in the clinic and she was complaining of accompanying headaches. Her HELLP labs were within normal limits. Urine protein, 24 hours estimation was 293 mg. The patient received 2 doses of Cytotec, 25 mcg each for cervical ripening, followed by oxytocin titration for induction of labor. She also received vancomycin for the positive GBS status due to the fact that she was allergic to both cephalosporins and penicillin. During the intrapartum period, her blood pressure ranged between 120s to 140s over 80s to 90s, and she remained asymptomatic on magnesium sulfate for eclampsia prophylaxis and required no antihypertensives. Artificial rupture of membrane was performed when she was approximately 3 to 4 cm dilated, and she subsequently received epidural for pain management. She made slow and steady progress and eventually became fully dilated at approximately 2200 hours on the 13 of June. Maximum dose of oxytocin was 20 milliunits per minute. heart tracing remained category 1. She commenced active pushing, pushed quite well, brought the baby's head down to a +4 station and was set up for delivery in modified dorsal lithotomy position. DESCRIPTION OF PROCEDURE: She had a spontaneous vaginal delivery of a live male infant in direct occipital anterior position, no nuchal cord, clear amniotic fluid at delivery. Anterior and posterior shoulders and the rest of the baby were delivered without difficulty. Baby was delivered onto the maternal abdomen with the nursery nurse in attendance, stimulating and drying him. The cord was double clamped and subsequently cut by one of the members of the family. With delivery of the infant, oxytocin infusion was converted to titration for active management of the third stage of labor. Cord blood and gas samples were obtained. Placenta was delivered by controlled cord traction, appeared to be complete and intact. Vigorous uterine massage was performed, the uterus was found to be well contracted below the umbilicus. Examination of the perineum revealed a first-degree laceration at 7 o'clock position, this was repaired with 2-0 Vicryl in a running fashion and it was hemostatic post repair. Uterine massage was performed again and the uterus was found to be well contracted. The patient tolerated the procedure well. Sponge, instrument, and needle counts were correct at the end of the delivery. ADUMVIV / HAYDEL /[id number] DASH
--- NOTE | 2017-06-14 06:12 | PCM48HPAN ---
Post Anesthesia Note - EVALUATION WITHIN 48HRS OF ANESTHETIC Vital Signs in Normal Range: Yes Patient Participated in Evaluation: Yes Respiratory Function Stable: Yes Airway Patent: Yes Cardiovascular Function Stable: Yes Hydration Status Stable: Yes Pain Control Satisfactory: Yes Nausea and Vomiting Control Satisfactory: Yes Mental Status Recovered: Yes Resp Rate: 20
[2017-06-14] MEDS: Ibuprofen 800 MG Tab PO PRN (07:47)
--- NOTE | 2017-06-14 09:11 | PCM.PNPP ---
<IsaiahJanie Leo - Last Filed: 06/14/17 09:06> - General Info Date of Service: 06/14/17 Admission Dx/Problem (Free Text): 36/6, IOL due to preeclampsia, with 1st degree laceration. Subjective Update: Patient is doing well. Pain is controlled. . Lochia - WNL. On magnesium. Tolerating food with no n/v. Urinating. No bowel movement since delivery. SCDs on. No headache or RUQ pain. Functional Status: Reports: Pain Controlled, Tolerating Diet, Ambulating, Urinating - Review of Systems General: Denies: Fever, Chills HEENT: Denies: Headaches Pulmonary: Denies: Shortness of Breath, Pleuritic Chest Pain Cardiovascular: Denies: Chest Pain, Palpitations, Lightheadedness Gastrointestinal: Denies: Abdominal Pain, Nausea, Vomiting - General Info Date of Service: 06/14/17 - Patient Data Vital Signs - Most Recent: Last Vital Signs Temp 36.8 C 06/14/17 04:30 Pulse 103 H 06/14/17 04:30 Resp 20 06/14/17 06:12 BP 128/77 06/14/17 04:30 Pulse Ox 99 06/14/17 04:30 Weight - Most Recent: 131.723 kg Lab Results - Last 24 Hours: Laboratory Results - last 24 hr 06/13/17 06/13/17 06/13/17 Range/Units 10:10 16:01 22:35 Cord ABG pH (7.18-7.38) Cord ABG Base Excess (-10--2) Cord VBG pH (7.25-7.45) Cord VBG Base Excess (-10--2) Magnesium 3.7 H 3.6 H 4.3 H (1.5-2.0) mg/dL 06/14/17 06/14/17 Range/Units 00:58 04:25 Cord ABG pH 7.252 (7.18-7.38) Cord ABG Base Excess -4 (-10--2) Cord VBG pH 7.332 (7.25-7.45) Cord VBG Base Excess -4 (-10--2) Magnesium 4.3 H (1.5-2.0) mg/dL Med Orders - Current: Current Medications Acetaminophen (Tylenol Extra Strength) 500 mg PO Q4H PRN PRN Reason: Pain Acetaminophen (Tylenol Extra Strength) 1,000 mg PO Q4H PRN PRN Reason: Pain Last Admin: 06/14/17 01:52 Dose: 1,000 mg Benzocaine/Menthol (Dermoplast Pain Relief 20%-0.5% [place]) 78 gm TOP ASDIRECTED PRN PRN Reason: Perineal Comfort Measure Last Admin: 06/14/17 03:23 Dose: 78 gm Bisacodyl (Dulcolax) 10 mg RECTAL .ONCE PRN PRN Reason: Constipation Calcium Gluconate (Calcium Gluconate) 1 gm IVPUSH ASDIRECTED PRN PRN Reason: respiratory distress Docusate Sodium (Colace) 100 mg PO BID PRN PRN Reason: Constipation Emollient Ointment (Lansinoh Hpa) 0 gm TOP ASDIRECTED PRN PRN Reason: Sore Nipples Last Admin: 06/14/17 03:21 Dose: 7 gm Magnesium Sulfate (Magnesium Sulfate 40 Gm In Water 1000 Ml) 40 gm in 1,000 mls @ 50 mls/hr IV ASDIRECTED SKY Last Admin: 06/13/17 16:17 Dose: 2 gm/hr, 50 mls/hr Ibuprofen (Motrin) 400 mg PO Q4H PRN PRN Reason: Pain Ibuprofen (Motrin) 800 mg PO Q6H PRN PRN Reason: Pain Last Admin: 06/14/17 07:47 Dose: 800 mg Oxycodone HCl (Oxycodone) 5 mg PO Q2H PRN PRN Reason: Pain Witch Shelly (Tucks) 1 pad TOP ASDIRECTED PRN PRN Reason: comfort care Last Admin: 06/14/17 03:22 Dose: 1 pad Discontinued Medications Acetaminophen (Tylenol Extra Strength) 1,000 mg PO Q6H PRN PRN Reason: Headache Last Admin: 06/13/17 05:07 Dose: 1,000 mg Butorphanol Tartrate (Stadol) 1 mg IVPUSH Q1H PRN PRN Reason: Pain Last Admin: 06/13/17 16:24 Dose: 1 mg Carboprost Tromethamine (Hemabate Ds) 250 mcg IM ASDIRECTED PRN PRN Reason: Post Hemorrhage Lactated Ringer's (Ringers, Lactated) 1,000 mls @ 150 mls/hr IV ASDIRECTED [facility] Last Admin: 06/13/17 20:21 Dose: 10 mls/hr Oxytocin/Sodium Chloride (Oxytocin 30 Unit/500 Ml-Ns) 30 unit in 500 mls @ 500 mls/hr IV TITRATE SKY Tranexamic Acid 1,000 mg/ (Sodium Chloride) 110 mls @ 660 mls/hr IV ONETIME PRN PRN Reason: Bleeding Vancomycin HCl 1 gm/ Sodium (Chloride) 250 mls @ 166 mls/hr IV Q12H SKY Last Admin: 06/13/17 20:18 Dose: 166 mls/hr Oxytocin/Sodium Chloride (Oxytocin 30 Unit/500 Ml-Ns) 30 unit in 500 mls @ 2 mls/hr IV TITRATE [facility]; Protocol Last Titration: 06/14/17 00:53 Dose: 999 munits/min, 999 mls/hr Magnesium Sulfate 4 gm/ Premix 100 mls @ 300 mls/hr IV ONETIME ONE Stop: 06/12/17 18:15 Last Admin: 06/12/17 18:32 Dose: 300 mls/hr Sodium Chloride (Normal Saline) 1,000 mls @ 10 mls/hr IV ASDIRECTED [facility] Last Admin: 06/13/17 20:48 Dose: 10 mls/hr Fentanyl/Bupivacaine HCl ([id number]-Uogwz-Ra 2 Mcg/Ml-0.125%) Confirm Administered Dose 100 mls @ as directed EP .STK-MED ONE Stop: 06/13/17 19:38 Lidocaine HCl (Xylocaine 1%) 50 ml INJECT .ONCE PRN PRN Reason: Laceration repair Methylergonovine Maleate (Methergine) 0.2 mg IM ASDIRECTED PRN PRN Reason: Post Hemorrhage Misoprostol (Cytotec) 200 mcg PO .ONCE PRN PRN Reason: Post Hemorrhage Misoprostol (Cytotec) 25 mcg VAG .ONCE SKY Last Admin: 06/12/17 18:57 Dose: 25 mcg Misoprostol (Cytotec) 25 mcg VAG Q4H PRN PRN Reason: Cervical Ripening Last Admin: 06/13/17 03:42 Dose: 25 mcg Nalbuphine HCl (Nubain) 10 mg IVPUSH Q1H PRN PRN Reason: Pain (severe 7-10) Ropivacaine (Naropin 0.2%) Confirm Administered Dose 20 ml .ROUTE .[employer] ONE Stop: 06/13/17 19:38 Sodium Chloride (Saline Flush) 10 ml FLUSH ASDIRECTED PRN PRN Reason: Keep Vein Open Sodium Chloride (Saline Flush) 2.5 ml FLUSH ASDIRECTED PRN PRN Reason: Keep Vein Open Sodium Chloride (Saline Flush) 10 ml FLUSH ASDIRECTED PRN PRN Reason: Keep Vein Open Sodium Chloride (Saline Flush) 2.5 ml FLUSH ASDIRECTED PRN PRN Reason: Keep Vein Open Sterile Water (Sterile Water For Irrigation) 1,000 ml IRR ASDIRECTED PRN PRN Reason: delivery Last Admin: 06/14/17 00:49 Dose: 1,000 ml Terbutaline Sulfate (Brethine) 0.25 mg SUBCUT ASDIRECTED PRN PRN Reason: Tacysystole - Interaction Infant Disposition, : in Room with Family Interaction: Holding Infant Feeding: Attempted ; Nursed Fair/Poor Support Person: Friend - Recovery Exam Fundal Tone: Firm (Per nursing) Fundal Level: At Umbilicus (Per nursing) Fundal Placement: Midline (Per nursing) Lochia Amount: Scant Lochia Color: Rubra/Red Other Perinuem Description: 1st degree vaginal laceration Episiotomy/Laceration: Approximated Bladder Status: Voiding Urinary Elimination: Voided - Exam General: Alert, Oriented, No Acute Distress Lungs: Clear to Auscultation, Normal Respiratory Effort Cardiovascular: Regular Rate, Regular Rhythm GI/Abdominal Exam: Soft, Non-Tender Extremities: Pedal Edema (Trace) Skin: Warm, Dry Psy/Mental Status: Alert Physical Findings Comment:: DTR +1 per nursing. - Assessment Assessment:: PPD #0. 36/6 IOL due to preeclampsia with . Stable. - Plan Plan:: Continue magnesium with magnesium checks. Continue routine post- cares. Monitor blood pressures. Recheck labs today. <Lydia Brown - Last Filed: 06/14/17 16:57> - Patient Data Vital Signs - Most Recent: Last Vital Signs Temp 36.8 C 06/14/17 04:30 Pulse 103 H 06/14/17 04:30 Resp 20 06/14/17 06:12 BP 128/77 06/14/17 04:30 Pulse Ox 99 06/14/17 04:30 Lab Results - Last 24 Hours: Laboratory Results - last 24 hr 06/13/17 06/14/17 06/14/17 Range/Units 22:35 00:58 04:25 WBC (4.0-11.0) K/uL RBC (4.30-5.90) M/uL Hgb (12.0-16.0) g/dL Hct (36.0-46.0) % MCV (80.0-98.0) fL MCH (27.0-32.0) pg MCHC (31.0-37.0) g/dL RDW Std Deviation (28.0-62.0) fl RDW Coeff of Laura (11.0-15.0) % Plt Count (150-400) K/uL MPV (7.40-12.00) fL Nucleated RBC % /100WBC Nucleated RBCs # K/uL Cord ABG pH 7.252 (7.18-7.38) Cord ABG Base Excess -4 (-10--2) Cord VBG pH 7.332 (7.25-7.45) Cord VBG Base Excess -4 (-10--2) Sodium (136-145) mmol/L Potassium (3.5-5.1) mmol/L Chloride (98-107) mmol/L Carbon Dioxide (21.0-32.0) mmol/L BUN (7.0-18.0) mg/dL Creatinine (0.6-1.0) mg/dL Est Cr Clr Drug Dosing mL/min Estimated GFR (MDRD) ml/min Glucose (74-106) mg/dL Calcium (8.5-10.1) mg/dL Magnesium 4.3 H 4.3 H (1.5-2.0) mg/dL Total Bilirubin (0.2-1.0) mg/dL AST (15-37) IU/L ALT (14-63) IU/L Alkaline Phosphatase (46-116) U/L Total Protein (6.4-8.2) g/dL Albumin (3.4-5.0) g/dL Globulin (2.0-3.5) g/dL Albumin/Globulin Ratio (1.3-2.8) 05/02/18 05/02/18 05/02/18 Range/Units 10:10 13:13 13:13 WBC 14.59 H (4.0-11.0) K/uL RBC 4.40 (4.30-5.90) M/uL Hgb 12.8 (12.0-16.0) g/dL Hct 37.8 (36.0-46.0) % MCV 85.9 (80.0-98.0) fL MCH 29.1 (27.0-32.0) pg MCHC 33.9 (31.0-37.0) g/dL RDW Std Deviation 48.3 (28.0-62.0) fl RDW Coeff of Laura 16 H (11.0-15.0) % Plt Count 263 (150-400) K/uL MPV 10.00 (7.40-12.00) fL Nucleated RBC % 0.0 /100WBC Nucleated RBCs # 0 K/uL Cord ABG pH (7.18-7.38) Cord ABG Base Excess (-10--2) Cord VBG pH (7.25-7.45) Cord VBG Base Excess (-10--2) Sodium 137 (136-145) mmol/L Potassium 4.1 (3.5-5.1) mmol/L Chloride 107 (98-107) mmol/L Carbon Dioxide 20.9 L (21.0-32.0) mmol/L BUN 13 (7.0-18.0) mg/dL Creatinine 0.7 (0.6-1.0) mg/dL Est Cr Clr Drug Dosing 129.32 mL/min Estimated GFR (MDRD) > 60.0 ml/min Glucose 156 H (74-106) mg/dL Calcium 8.0 L (8.5-10.1) mg/dL Magnesium 4.1 H (1.5-2.0) mg/dL Total Bilirubin 0.2 (0.2-1.0) mg/dL AST 18 (15-37) IU/L ALT 17 (14-63) IU/L Alkaline Phosphatase 147 H (46-116) U/L Total Protein 6.4 (6.4-8.2) g/dL Albumin 2.2 L (3.4-5.0) g/dL Globulin 4.2 H (2.0-3.5) g/dL Albumin/Globulin Ratio 0.5 L (1.3-2.8) Med Orders - Current: Current Medications Acetaminophen (Tylenol Extra Strength) 500 mg PO Q4H PRN PRN Reason: Pain Acetaminophen (Tylenol Extra Strength) 1,000 mg PO Q4H PRN PRN Reason: Pain Last Admin: 06/14/17 01:52 Dose: 1,000 mg Benzocaine/Menthol (Dermoplast Pain Relief 20%-0.5% [place]) 78 gm TOP ASDIRECTED PRN PRN Reason: Perineal Comfort Measure Last Admin: 06/14/17 03:23 Dose: 78 gm Bisacodyl (Dulcolax) 10 mg RECTAL .ONCE PRN PRN Reason: Constipation Calcium Gluconate (Calcium Gluconate) 1 gm IVPUSH ASDIRECTED PRN PRN Reason: respiratory distress Docusate Sodium (Colace) 100 mg PO BID PRN PRN Reason: Constipation Emollient Ointment (Lansinoh Hpa) 0 gm TOP ASDIRECTED PRN PRN Reason: Sore Nipples Last Admin: 06/14/17 03:21 Dose: 7 gm Magnesium Sulfate (Magnesium Sulfate 40 Gm In Water 1000 Ml) 40 gm in 1,000 mls @ 50 mls/hr IV ASDIRECTED SKY Last Infusion: 06/14/17 12:50 Dose: 2 gm/hr, 50 mls/hr Ibuprofen (Motrin) 400 mg PO Q4H PRN PRN Reason: Pain Ibuprofen (Motrin) 800 mg PO Q6H PRN PRN Reason: Pain Last Admin: 06/14/17 07:47 Dose: 800 mg Oxycodone HCl (Oxycodone) 5 mg PO Q2H PRN PRN Reason: Pain Witch Shelly (Tucks) 1 pad TOP ASDIRECTED PRN PRN Reason: comfort care Last Admin: 06/14/17 03:22 Dose: 1 pad Discontinued Medications Acetaminophen (Tylenol Extra Strength) 1,000 mg PO Q6H PRN PRN Reason: Headache Last Admin: 06/13/17 05:07 Dose: 1,000 mg Butorphanol Tartrate (Stadol) 1 mg IVPUSH Q1H PRN PRN Reason: Pain Last Admin: 06/13/17 16:24 Dose: 1 mg Carboprost Tromethamine (Hemabate Ds) 250 mcg IM ASDIRECTED PRN PRN Reason: Post Hemorrhage Lactated Ringer's (Ringers, Lactated) 1,000 mls @ 150 mls/hr IV ASDIRECTED SKY Last Admin: 06/13/17 20:21 Dose: 10 mls/hr Oxytocin/Sodium Chloride (Oxytocin 30 Unit/500 Ml-Ns) 30 unit in 500 mls @ 500 mls/hr IV TITRATE SKY Tranexamic Acid 1,000 mg/ (Sodium Chloride) 110 mls @ 660 mls/hr IV ONETIME PRN PRN Reason: Bleeding Vancomycin HCl 1 gm/ Sodium (Chloride) 250 mls @ 166 mls/hr IV Q12H SKY Last Admin: 06/13/17 20:18 Dose: 166 mls/hr Oxytocin/Sodium Chloride (Oxytocin 30 Unit/500 Ml-Ns) 30 unit in 500 mls @ 2 mls/hr IV TITRATE SKY; Protocol Last Titration: 06/14/17 00:53 Dose: 999 munits/min, 999 mls/hr Magnesium Sulfate 4 gm/ Premix 100 mls @ 300 mls/hr IV ONETIME ONE Stop: 06/12/17 18:15 Last Admin: 06/12/17 18:32 Dose: 300 mls/hr Sodium Chloride (Normal Saline) 1,000 mls @ 10 mls/hr IV ASDIRECTED [facility] Last Admin: 06/13/17 20:48 Dose: 10 mls/hr Fentanyl/Bupivacaine HCl (Pgqxbtxo-Hzcni-St 2 Mcg/Ml-0.125%) Confirm Administered Dose 100 mls @ as directed EP .STK-MED ONE Stop: 06/13/17 19:38 Lidocaine HCl (Xylocaine 1%) 50 ml INJECT .ONCE PRN PRN Reason: Laceration repair Methylergonovine Maleate (Methergine) 0.2 mg IM ASDIRECTED PRN PRN Reason: Post Hemorrhage Misoprostol (Cytotec) 200 mcg PO .ONCE PRN PRN Reason: Post Hemorrhage Misoprostol (Cytotec) 25 mcg VAG .ONCE SKY Last Admin: 06/12/17 18:57 Dose: 25 mcg Misoprostol (Cytotec) 25 mcg VAG Q4H PRN PRN Reason: Cervical Ripening Last Admin: 06/13/17 03:42 Dose: 25 mcg Nalbuphine HCl (Nubain) 10 mg IVPUSH Q1H PRN PRN Reason: Pain (severe 7-10) Ropivacaine (Naropin 0.2%) Confirm Administered Dose 20 ml .ROUTE .[employer] ONE Stop: 06/13/17 19:38 Sodium Chloride (Saline Flush) 10 ml FLUSH ASDIRECTED PRN PRN Reason: Keep Vein Open Sodium Chloride (Saline Flush) 2.5 ml FLUSH ASDIRECTED PRN PRN Reason: Keep Vein Open Sodium Chloride (Saline Flush) 10 ml FLUSH ASDIRECTED PRN PRN Reason: Keep Vein Open Sodium Chloride (Saline Flush) 2.5 ml FLUSH ASDIRECTED PRN PRN Reason: Keep Vein Open Sterile Water (Sterile Water For Irrigation) 1,000 ml IRR ASDIRECTED PRN PRN Reason: delivery Last Admin: 06/14/17 00:49 Dose: 1,000 ml Terbutaline Sulfate (Brethine) 0.25 mg SUBCUT ASDIRECTED PRN PRN Reason: Tacysystole - Problem List & Annotations (1) Severe pre-eclampsia SNOMED Code(s): 73184597 Code(s): O14.10 - SEVERE PRE-ECLAMPSIA, UNSPECIFIED TRIMESTER Status: Acute Current Visit: Yes (2) Vaginal delivery SNOMED Code(s): 720046625 Code(s): O80 - ENCOUNTER FOR FULL-TERM UNCOMPLICATED DELIVERY Status: Acute Current Visit: Yes - Problem List Review Problem List Initiated/Reviewed/Updated: Yes - My Orders Last 24 Hours: My Active Orders 06/13/17 16:00 Deep Tendon Reflexes [[facility]] Q1H 06/13/17 17:00 Deep Tendon Reflexes [[facility]OMSER] Q1H 06/14/17 16:10 MAGNESIUM [CHEM] Q6H 06/14/17 22:00 MAGNESIUM [CHEM] Q6H 06/15/17 04:00 MAGNESIUM [CHEM] Q6H - Plan Plan:: PPDO stable , denies any symptoms, will continue magnessium for 24hr.
[2017-06-14] MEDS: Magnesium Sulfate/Water 40 GM/1,000 ML BAG IV SCH (12:00)
[2017-06-14 13:50] LABS: CHLORIDE,CL 107 mmol/L (98-107); SODIUM,NA 137 mmol/L (136-145)
[2017-06-15] MEDS: Ibuprofen 800 MG Tab PO PRN (02:56)
--- NOTE | 2017-06-15 08:41 | PCM.PNPP ---
<Janie Colon - Last Filed: 06/15/17 08:33> - General Info Date of Service: 06/15/17 Admission Dx/Problem (Free Text): 36/6, IOL due to preeclampsia, with 1st degree laceration. Subjective Update: Patient is doing well. Pain is controlled. Attempting beastfeeding, supplementing with formula. Lochia - WNL. Magnesium has been discontinued. Tolerating food with no n/v. Urinating. No bowel movement since delivery. SCDs on. Headaches relieved with tylenol. No RUQ pain. Blood pressures elevated. Ambulating. Functional Status: Reports: Pain Controlled, Tolerating Diet, Ambulating, Urinating - Review of Systems General: Denies: Fever, Chills HEENT: Reports: Headaches Pulmonary: Denies: Shortness of Breath, Pleuritic Chest Pain Cardiovascular: Denies: Chest Pain, Palpitations, Lightheadedness - General Info Date of Service: 06/15/17 - Patient Data Vital Signs - Most Recent: Last Vital Signs Temp 36.4 C 06/15/17 04:40 Pulse 89 06/15/17 07:45 Resp 18 06/15/17 07:45 BP 148/69 H 06/15/17 07:45 Pulse Ox 96 06/15/17 07:45 Weight - Most Recent: 131.723 kg Lab Results - Last 24 Hours: Laboratory Results - last 24 hr 06/14/17 06/14/17 06/14/17 Range/Units 10:10 13:13 13:13 WBC 14.59 H (4.0-11.0) K/uL RBC 4.40 (4.30-5.90) M/uL Hgb 12.8 (12.0-16.0) g/dL Hct 37.8 (36.0-46.0) % MCV 85.9 (80.0-98.0) fL MCH 29.1 (27.0-32.0) pg MCHC 33.9 (31.0-37.0) g/dL RDW Std Deviation 48.3 (28.0-62.0) fl RDW Coeff of Laura 16 H (11.0-15.0) % Plt Count 263 (150-400) K/uL MPV 10.00 (7.40-12.00) fL Nucleated RBC % 0.0 /100WBC Nucleated RBCs # 0 K/uL Sodium 137 (136-145) mmol/L Potassium 4.1 (3.5-5.1) mmol/L Chloride 107 (98-107) mmol/L Carbon Dioxide 20.9 L (21.0-32.0) mmol/L BUN 13 (7.0-18.0) mg/dL Creatinine 0.7 (0.6-1.0) mg/dL Est Cr Clr Drug Dosing 129.32 mL/min Estimated GFR (MDRD) > 60.0 ml/min Glucose 156 H (74-106) mg/dL Calcium 8.0 L (8.5-10.1) mg/dL Magnesium 4.1 H (1.5-2.0) mg/dL Total Bilirubin 0.2 (0.2-1.0) mg/dL AST 18 (15-37) IU/L ALT 17 (14-63) IU/L Alkaline Phosphatase 147 H (46-116) U/L Total Protein 6.4 (6.4-8.2) g/dL Albumin 2.2 L (3.4-5.0) g/dL Globulin 4.2 H (2.0-3.5) g/dL Albumin/Globulin Ratio 0.5 L (1.3-2.8) 06/14/17 06/14/17 Range/Units 16:10 21:48 WBC (4.0-11.0) K/uL RBC (4.30-5.90) M/uL Hgb (12.0-16.0) g/dL Hct (36.0-46.0) % MCV (80.0-98.0) fL MCH (27.0-32.0) pg MCHC (31.0-37.0) g/dL RDW Std Deviation (28.0-62.0) fl RDW Coeff of Laura (11.0-15.0) % Plt Count (150-400) K/uL MPV (7.40-12.00) fL Nucleated RBC % /100WBC Nucleated RBCs # K/uL Sodium (136-145) mmol/L Potassium (3.5-5.1) mmol/L Chloride (98-107) mmol/L Carbon Dioxide (21.0-32.0) mmol/L BUN (7.0-18.0) mg/dL Creatinine (0.6-1.0) mg/dL Est Cr Clr Drug Dosing mL/min Estimated GFR (MDRD) ml/min Glucose (74-106) mg/dL Calcium (8.5-10.1) mg/dL Magnesium 3.8 H 3.6 H (1.5-2.0) mg/dL Total Bilirubin (0.2-1.0) mg/dL AST (15-37) IU/L ALT (14-63) IU/L Alkaline Phosphatase (46-116) U/L Total Protein (6.4-8.2) g/dL Albumin (3.4-5.0) g/dL Globulin (2.0-3.5) g/dL Albumin/Globulin Ratio (1.3-2.8) Med Orders - Current: Current Medications Acetaminophen (Tylenol Extra Strength) 500 mg PO Q4H PRN PRN Reason: Pain Acetaminophen (Tylenol Extra Strength) 1,000 mg PO Q4H PRN PRN Reason: Pain Last Admin: 06/14/17 22:54 Dose: 1,000 mg Benzocaine/Menthol (Dermoplast Pain Relief 20%-0.5% [place]) 78 gm TOP ASDIRECTED PRN PRN Reason: Perineal Comfort Measure Last Admin: 06/14/17 03:23 Dose: 78 gm Bisacodyl (Dulcolax) 10 mg RECTAL .ONCE PRN PRN Reason: Constipation Docusate Sodium (Colace) 100 mg PO BID PRN PRN Reason: Constipation Last Admin: 06/15/17 00:23 Dose: 100 mg Emollient Ointment (Lansinoh Hpa) 0 gm TOP ASDIRECTED PRN PRN Reason: Sore Nipples Last Admin: 06/14/17 03:21 Dose: 7 gm Ibuprofen (Motrin) 400 mg PO Q4H PRN PRN Reason: Pain Ibuprofen (Motrin) 800 mg PO Q6H PRN PRN Reason: Pain Last Admin: 06/15/17 02:56 Dose: 800 mg Oxycodone HCl (Oxycodone) 5 mg PO Q2H PRN PRN Reason: Pain Witch Shelly (Tucks) 1 pad TOP ASDIRECTED PRN PRN Reason: comfort care Last Admin: 06/14/17 03:22 Dose: 1 pad Discontinued Medications Acetaminophen (Tylenol Extra Strength) 1,000 mg PO Q6H PRN PRN Reason: Headache Last Admin: 06/13/17 05:07 Dose: 1,000 mg Butorphanol Tartrate (Stadol) 1 mg IVPUSH Q1H PRN PRN Reason: Pain Last Admin: 06/13/17 16:24 Dose: 1 mg Calcium Gluconate (Calcium Gluconate) 1 gm IVPUSH ASDIRECTED PRN PRN Reason: respiratory distress Stop: 06/15/17 00:56 Carboprost Tromethamine (Hemabate Ds) 250 mcg IM ASDIRECTED PRN PRN Reason: Post Hemorrhage Lactated Ringer's (Ringers, Lactated) 1,000 mls @ 150 mls/hr IV ASDIRECTED SKY Last Admin: 06/13/17 20:21 Dose: 10 mls/hr Oxytocin/Sodium Chloride (Oxytocin 30 Unit/500 Ml-Ns) 30 unit in 500 mls @ 500 mls/hr IV TITRATE SKY Tranexamic Acid 1,000 mg/ (Sodium Chloride) 110 mls @ 660 mls/hr IV ONETIME PRN PRN Reason: Bleeding Vancomycin HCl 1 gm/ Sodium (Chloride) 250 mls @ 166 mls/hr IV Q12H SKY Last Admin: 06/13/17 20:18 Dose: 166 mls/hr Oxytocin/Sodium Chloride (Oxytocin 30 Unit/500 Ml-Ns) 30 unit in 500 mls @ 2 mls/hr IV TITRATE SKY; Protocol Last Titration: 06/14/17 00:53 Dose: 999 munits/min, 999 mls/hr Magnesium Sulfate 4 gm/ Premix 100 mls @ 300 mls/hr IV ONETIME ONE Stop: 06/12/17 18:15 Last Admin: 06/12/17 18:32 Dose: 300 mls/hr Magnesium Sulfate (Magnesium Sulfate 40 Gm In Water 1000 Ml) 40 gm in 1,000 mls @ 50 mls/hr IV ASDIRECTED [facility] Last Infusion: 06/14/17 12:50 Dose: 2 gm/hr, 50 mls/hr Sodium Chloride (Normal Saline) 1,000 mls @ 10 mls/hr IV ASDIRECTED [facility] Last Admin: 06/13/17 20:48 Dose: 10 mls/hr Fentanyl/Bupivacaine HCl (Oyujlwuo-Jzoja-Wm 2 Mcg/Ml-0.125%) Confirm Administered Dose 100 mls @ as directed EP .[facility] ONE Stop: 06/13/17 19:38 Lidocaine HCl (Xylocaine 1%) 50 ml INJECT .ONCE PRN PRN Reason: Laceration repair Methylergonovine Maleate (Methergine) 0.2 mg IM ASDIRECTED PRN PRN Reason: Post Hemorrhage Misoprostol (Cytotec) 200 mcg PO .ONCE PRN PRN Reason: Post Hemorrhage Misoprostol (Cytotec) 25 mcg VAG .ONCE SKY Last Admin: 06/12/17 18:57 Dose: 25 mcg Misoprostol (Cytotec) 25 mcg VAG Q4H PRN PRN Reason: Cervical Ripening Last Admin: 06/13/17 03:42 Dose: 25 mcg Nalbuphine HCl (Nubain) 10 mg IVPUSH Q1H PRN PRN Reason: Pain (severe 7-10) Ropivacaine (Naropin 0.2%) Confirm Administered Dose 20 ml .ROUTE .[facility] ONE Stop: 06/13/17 19:38 Sodium Chloride (Saline Flush) 10 ml FLUSH ASDIRECTED PRN PRN Reason: Keep Vein Open Sodium Chloride (Saline Flush) 2.5 ml FLUSH ASDIRECTED PRN PRN Reason: Keep Vein Open Sodium Chloride (Saline Flush) 10 ml FLUSH ASDIRECTED PRN PRN Reason: Keep Vein Open Sodium Chloride (Saline Flush) 2.5 ml FLUSH ASDIRECTED PRN PRN Reason: Keep Vein Open Sterile Water (Sterile Water For Irrigation) 1,000 ml IRR ASDIRECTED PRN PRN Reason: delivery Last Admin: 06/14/17 00:49 Dose: 1,000 ml Terbutaline Sulfate (Brethine) 0.25 mg SUBCUT ASDIRECTED PRN PRN Reason: Tacysystole - Infant Interaction Disposition, : in Room with Family Infant Interaction: Holding Infant Feeding: Attempted ; Nursed Fair/Poor Other Feeding: Supplementing with formula. Support Person: Friend - Recovery Exam Fundal Tone: Firm Fundal Level: 2 Fingerbreadths Below Umbilicus Fundal Placement: Midline Lochia Amount: Scant Lochia Color: Rubra/Red Other Perinuem Description: 1st degree vaginal laceration Episiotomy/Laceration: Approximated Bladder Status: Voiding Urinary Elimination: Voided - Exam General: Alert, Oriented, No Acute Distress Lungs: Clear to Auscultation, Normal Respiratory Effort Cardiovascular: Regular Rate, Regular Rhythm GI/Abdominal Exam: Soft, Non-Tender Extremities: Pedal Edema (1+) Skin: Warm, Dry Psy/Mental Status: Alert - Problem List & Annotations (1) Severe pre-eclampsia SNOMED Code(s): 60273245 Code(s): O14.10 - SEVERE PRE-ECLAMPSIA, UNSPECIFIED TRIMESTER Status: Acute Current Visit: Yes (2) Vaginal delivery SNOMED Code(s): 781431092 Code(s): O80 - ENCOUNTER FOR FULL-TERM UNCOMPLICATED DELIVERY Status: Acute Current Visit: Yes - Assessment Assessment:: PPD #1. 36/6 IOL due to preeclampsia with . Stable. - Plan Plan:: Magnesium has been discontinued. Monitor blood pressures. Continue routine post- cares. Possible discharge tomorrow. <Lydia Brown - Last Filed: 06/16/17 08:58> - Patient Data Vital Signs - Most Recent: Last Vital Signs Temp 36.6 C 06/16/17 08:41 Pulse 90 06/16/17 08:41 Resp 21 H 06/16/17 08:41 BP 140/78 06/16/17 08:41 Pulse Ox 98 06/16/17 08:41 Med Orders - Current: Current Medications Acetaminophen (Tylenol Extra Strength) 500 mg PO Q4H PRN PRN Reason: Pain Acetaminophen (Tylenol Extra Strength) 1,000 mg PO Q4H PRN PRN Reason: Pain Last Admin: 06/14/17 22:54 Dose: 1,000 mg Benzocaine/Menthol (Dermoplast Pain Relief 20%-0.5% [place]) 78 gm TOP ASDIRECTED PRN PRN Reason: Perineal Comfort Measure Last Admin: 06/14/17 03:23 Dose: 78 gm Bisacodyl (Dulcolax) 10 mg RECTAL .ONCE PRN PRN Reason: Constipation Docusate Sodium (Colace) 100 mg PO BID PRN PRN Reason: Constipation Last Admin: 06/15/17 00:23 Dose: 100 mg Emollient Ointment (Lansinoh Hpa) 0 gm TOP ASDIRECTED PRN PRN Reason: Sore Nipples Last Admin: 06/14/17 03:21 Dose: 7 gm Ibuprofen (Motrin) 400 mg PO Q4H PRN PRN Reason: Pain Ibuprofen (Motrin) 800 mg PO Q6H PRN PRN Reason: Pain Last Admin: 06/15/17 02:56 Dose: 800 mg Oxycodone HCl (Oxycodone) 5 mg PO Q2H PRN PRN Reason: Pain Last Admin: 06/16/17 01:11 Dose: 5 mg Witch Shelly (Tucks) 1 pad TOP ASDIRECTED PRN PRN Reason: comfort care Last Admin: 06/14/17 03:22 Dose: 1 pad Discontinued Medications Acetaminophen (Tylenol Extra Strength) 1,000 mg PO Q6H PRN PRN Reason: Headache Last Admin: 06/13/17 05:07 Dose: 1,000 mg Butorphanol Tartrate (Stadol) 1 mg IVPUSH Q1H PRN PRN Reason: Pain Last Admin: 06/13/17 16:24 Dose: 1 mg Calcium Gluconate (Calcium Gluconate) 1 gm IVPUSH ASDIRECTED PRN PRN Reason: respiratory distress Stop: 06/15/17 00:56 Carboprost Tromethamine (Hemabate Ds) 250 mcg IM ASDIRECTED PRN PRN Reason: Post Hemorrhage Lactated Ringer's (Ringers, Lactated) 1,000 mls @ 150 mls/hr IV ASDIRECTED SKY Last Admin: 06/13/17 20:21 Dose: 10 mls/hr Oxytocin/Sodium Chloride (Oxytocin 30 Unit/500 Ml-Ns) 30 unit in 500 mls @ 500 mls/hr IV TITRATE SKY Tranexamic Acid 1,000 mg/ (Sodium Chloride) 110 mls @ 660 mls/hr IV ONETIME PRN PRN Reason: Bleeding Vancomycin HCl 1 gm/ Sodium (Chloride) 250 mls @ 166 mls/hr IV Q12H SKY Last Admin: 06/13/17 20:18 Dose: 166 mls/hr Oxytocin/Sodium Chloride (Oxytocin 30 Unit/500 Ml-Ns) 30 unit in 500 mls @ 2 mls/hr IV TITRATE SKY; Protocol Last Titration: 06/14/17 00:53 Dose: 999 munits/min, 999 mls/hr Magnesium Sulfate 4 gm/ Premix 100 mls @ 300 mls/hr IV ONETIME ONE Stop: 06/12/17 18:15 Last Admin: 06/12/17 18:32 Dose: 300 mls/hr Magnesium Sulfate (Magnesium Sulfate 40 Gm In Water 1000 Ml) 40 gm in 1,000 mls @ 50 mls/hr IV ASDIRECTED [facility] Last Infusion: 06/14/17 12:50 Dose: 2 gm/hr, 50 mls/hr Sodium Chloride (Normal Saline) 1,000 mls @ 10 mls/hr IV ASDIRECTED [facility] Last Admin: 06/13/17 20:48 Dose: 10 mls/hr Fentanyl/Bupivacaine HCl (Btveomvt-Iqzdy-Nn 2 Mcg/Ml-0.125%) Confirm Administered Dose 100 mls @ as directed EP .[facility] ONE Stop: 06/13/17 19:38 Lidocaine HCl (Xylocaine 1%) 50 ml INJECT .ONCE PRN PRN Reason: Laceration repair Methylergonovine Maleate (Methergine) 0.2 mg IM ASDIRECTED PRN PRN Reason: Post Hemorrhage Misoprostol (Cytotec) 200 mcg PO .ONCE PRN PRN Reason: Post Hemorrhage Misoprostol (Cytotec) 25 mcg VAG .ONCE SKY Last Admin: 06/12/17 18:57 Dose: 25 mcg Misoprostol (Cytotec) 25 mcg VAG Q4H PRN PRN Reason: Cervical Ripening Last Admin: 06/13/17 03:42 Dose: 25 mcg Nalbuphine HCl (Nubain) 10 mg IVPUSH Q1H PRN PRN Reason: Pain (severe 7-10) Ropivacaine (Naropin 0.2%) Confirm Administered Dose 20 ml .ROUTE .[facility] ONE Stop: 06/13/17 19:38 Sodium Chloride (Saline Flush) 10 ml FLUSH ASDIRECTED PRN PRN Reason: Keep Vein Open Sodium Chloride (Saline Flush) 2.5 ml FLUSH ASDIRECTED PRN PRN Reason: Keep Vein Open Sodium Chloride (Saline Flush) 10 ml FLUSH ASDIRECTED PRN PRN Reason: Keep Vein Open Sodium Chloride (Saline Flush) 2.5 ml FLUSH ASDIRECTED PRN PRN Reason: Keep Vein Open Sterile Water (Sterile Water For Irrigation) 1,000 ml IRR ASDIRECTED PRN PRN Reason: delivery Last Admin: 06/14/17 00:49 Dose: 1,000 ml Terbutaline Sulfate (Brethine) 0.25 mg SUBCUT ASDIRECTED PRN PRN Reason: Tacysystole - Problem List & Annotations (1) Severe pre-eclampsia SNOMED Code(s): 60324108 Code(s): O14.10 - SEVERE PRE-ECLAMPSIA, UNSPECIFIED TRIMESTER Status: Acute Current Visit: Yes (2) Vaginal delivery SNOMED Code(s): 338855365 Code(s): O80 - ENCOUNTER FOR FULL-TERM UNCOMPLICATED DELIVERY Status: Acute Current Visit: Yes - Problem List Review Problem List Initiated/Reviewed/Updated: Yes - Plan Plan:: patient is stable , denies headache , RUQ pain. will discharge home tomorrow
--- NOTE | 2017-06-16 09:12 | PCM.PNPP ---
- General Info Date of Service: 06/16/17 Admission Dx/Problem (Free Text): 21 yo P1 s/p patient induced for severe preclampsia , she denies any complains today Subjective Update: Patient is doing well. Pain is controlled. Attempting beastfeeding, supplementing with formula. Lochia - WNL. Tolerating food with no n/v. Urinating. BP is borderline Functional Status: Reports: Pain Controlled, Tolerating Diet, Ambulating, Urinating - Review of Systems General: Reports: No Symptoms HEENT: Reports: No Symptoms Pulmonary: Reports: No Symptoms Cardiovascular: Reports: No Symptoms Gastrointestinal: Reports: No Symptoms Genitourinary: Reports: No Symptoms Musculoskeletal: Reports: No Symptoms Skin: Reports: No Symptoms Neurological: Reports: No Symptoms Psychiatric: Reports: No Symptoms - General Info Date of Service: 06/16/17 - Patient Data Vital Signs - Most Recent: Last Vital Signs Temp 36.6 C 06/16/17 08:41 Pulse 90 06/16/17 08:41 Resp 21 H 06/16/17 08:41 BP 140/78 06/16/17 08:41 Pulse Ox 98 06/16/17 08:41 Weight - Most Recent: 131.723 kg Med Orders - Current: Current Medications Acetaminophen (Tylenol Extra Strength) 500 mg PO Q4H PRN PRN Reason: Pain Acetaminophen (Tylenol Extra Strength) 1,000 mg PO Q4H PRN PRN Reason: Pain Last Admin: 06/14/17 22:54 Dose: 1,000 mg Benzocaine/Menthol (Dermoplast Pain Relief 20%-0.5% [place]) 78 gm TOP ASDIRECTED PRN PRN Reason: Perineal Comfort Measure Last Admin: 06/14/17 03:23 Dose: 78 gm Bisacodyl (Dulcolax) 10 mg RECTAL .ONCE PRN PRN Reason: Constipation Docusate Sodium (Colace) 100 mg PO BID PRN PRN Reason: Constipation Last Admin: 06/15/17 00:23 Dose: 100 mg Emollient Ointment (Lansinoh Hpa) 0 gm TOP ASDIRECTED PRN PRN Reason: Sore Nipples Last Admin: 06/14/17 03:21 Dose: 7 gm Ibuprofen (Motrin) 400 mg PO Q4H PRN PRN Reason: Pain Ibuprofen (Motrin) 800 mg PO Q6H PRN PRN Reason: Pain Last Admin: 06/15/17 02:56 Dose: 800 mg Oxycodone HCl (Oxycodone) 5 mg PO Q2H PRN PRN Reason: Pain Last Admin: 06/16/17 01:11 Dose: 5 mg Witch Shelly (Tucks) 1 pad TOP ASDIRECTED PRN PRN Reason: comfort care Last Admin: 06/14/17 03:22 Dose: 1 pad Discontinued Medications Acetaminophen (Tylenol Extra Strength) 1,000 mg PO Q6H PRN PRN Reason: Headache Last Admin: 06/13/17 05:07 Dose: 1,000 mg Butorphanol Tartrate (Stadol) 1 mg IVPUSH Q1H PRN PRN Reason: Pain Last Admin: 06/13/17 16:24 Dose: 1 mg Calcium Gluconate (Calcium Gluconate) 1 gm IVPUSH ASDIRECTED PRN PRN Reason: respiratory distress Stop: 06/15/17 00:56 Carboprost Tromethamine (Hemabate Ds) 250 mcg IM ASDIRECTED PRN PRN Reason: Post Hemorrhage Lactated Ringer's (Ringers, Lactated) 1,000 mls @ 150 mls/hr IV ASDIRECTED SKY Last Admin: 06/13/17 20:21 Dose: 10 mls/hr Oxytocin/Sodium Chloride (Oxytocin 30 Unit/500 Ml-Ns) 30 unit in 500 mls @ 500 mls/hr IV TITRATE SKY Tranexamic Acid 1,000 mg/ (Sodium Chloride) 110 mls @ 660 mls/hr IV ONETIME PRN PRN Reason: Bleeding Vancomycin HCl 1 gm/ Sodium (Chloride) 250 mls @ 166 mls/hr IV Q12H SKY Last Admin: 06/13/17 20:18 Dose: 166 mls/hr Oxytocin/Sodium Chloride (Oxytocin 30 Unit/500 Ml-Ns) 30 unit in 500 mls @ 2 mls/hr IV TITRATE SKY; Protocol Last Titration: 06/14/17 00:53 Dose: 999 munits/min, 999 mls/hr Magnesium Sulfate 4 gm/ Premix 100 mls @ 300 mls/hr IV ONETIME ONE Stop: 06/12/17 18:15 Last Admin: 06/12/17 18:32 Dose: 300 mls/hr Magnesium Sulfate (Magnesium Sulfate 40 Gm In Water 1000 Ml) 40 gm in 1,000 mls @ 50 mls/hr IV ASDIRECTED [facility] Last Infusion: 06/14/17 12:50 Dose: 2 gm/hr, 50 mls/hr Sodium Chloride (Normal Saline) 1,000 mls @ 10 mls/hr IV ASDIRECTED [facility] Last Admin: 06/13/17 20:48 Dose: 10 mls/hr Fentanyl/Bupivacaine HCl (Clxthdgy-Pdjbj-Wq 2 Mcg/Ml-0.125%) Confirm Administered Dose 100 mls @ as directed EP .[facility]-MED ONE Stop: 06/13/17 19:38 Lidocaine HCl (Xylocaine 1%) 50 ml INJECT .ONCE PRN PRN Reason: Laceration repair Methylergonovine Maleate (Methergine) 0.2 mg IM ASDIRECTED PRN PRN Reason: Post Hemorrhage Misoprostol (Cytotec) 200 mcg PO .ONCE PRN PRN Reason: Post Hemorrhage Misoprostol (Cytotec) 25 mcg VAG .ONCE SKY Last Admin: 06/12/17 18:57 Dose: 25 mcg Misoprostol (Cytotec) 25 mcg VAG Q4H PRN PRN Reason: Cervical Ripening Last Admin: 06/13/17 03:42 Dose: 25 mcg Nalbuphine HCl (Nubain) 10 mg IVPUSH Q1H PRN PRN Reason: Pain (severe 7-10) Ropivacaine (Naropin 0.2%) Confirm Administered Dose 20 ml .ROUTE .[facility]-MED ONE Stop: 06/13/17 19:38 Sodium Chloride (Saline Flush) 10 ml FLUSH ASDIRECTED PRN PRN Reason: Keep Vein Open Sodium Chloride (Saline Flush) 2.5 ml FLUSH ASDIRECTED PRN PRN Reason: Keep Vein Open Sodium Chloride (Saline Flush) 10 ml FLUSH ASDIRECTED PRN PRN Reason: Keep Vein Open Sodium Chloride (Saline Flush) 2.5 ml FLUSH ASDIRECTED PRN PRN Reason: Keep Vein Open Sterile Water (Sterile Water For Irrigation) 1,000 ml IRR ASDIRECTED PRN PRN Reason: delivery Last Admin: 06/14/17 00:49 Dose: 1,000 ml Terbutaline Sulfate (Brethine) 0.25 mg SUBCUT ASDIRECTED PRN PRN Reason: Tacysystole - Infant Interaction Disposition, : in Room with Family Interaction: Holding Infant Feeding: Attempted ; Nursed Fair/Poor Other Infant Feeding: Supplementing with formula. Support Person: Friend - Recovery Exam Fundal Tone: Firm Fundal Level: 1 Fingerbreadths Below Umbilicus Fundal Placement: Midline Lochia Amount: Scant Lochia Color: Rubra/Red Perineum Description: Other (see below) Other Perinuem Description: 1st degree laceration. Episiotomy/Laceration: Approximated Bladder Status: Voiding Urinary Elimination: Voided - Exam General: Alert HEENT: Pupils Equal Neck: Supple Lungs: Clear to Auscultation Cardiovascular: Regular Rate, Regular Rhythm GI/Abdominal Exam: Normal Bowel Sounds Extremities: Normal Inspection Skin: Warm Wound/Incisions: Healing Well Neurological: No New Focal Deficit Psy/Mental Status: Alert - Problem List & Annotations (1) Severe pre-eclampsia SNOMED Code(s): 50082189 Code(s): O14.10 - SEVERE PRE-ECLAMPSIA, UNSPECIFIED TRIMESTER Status: Acute Current Visit: Yes (2) Vaginal delivery SNOMED Code(s): 718525167 Code(s): O80 - ENCOUNTER FOR FULL-TERM UNCOMPLICATED DELIVERY Status: Acute Current Visit: Yes - Problem List Review Problem List Initiated/Reviewed/Updated: Yes - Assessment Assessment:: PPD #1. 36/6 IOL due to preeclampsia with . Stable. PPD2 - Plan Plan:: patient is stable , denies headache , RUQ pain. will discharge home today
== END 2017-06-16 14:10 | disposition home or self-care (01) | DRG 775 ==
LOC: MW.OBCHECK 16:40 → MW.OB 16:41 → MW.OBCHECK 17:06 → OBSVTOIN 06-14 00:53 → MW.OB 06-14 06:15
PROVIDERS: ADMIT Obstetrics & Gynecology; ATTEND Obstetrics & Gynecology
PROC: 10E0XZZ Delivery of Products of Conception, External Approach (ICD-10-PCS; principal; 2017-06-14)
PROC: 0HQ9XZZ Repair Perineum Skin, External Approach (ICD-10-PCS; 2017-06-14)
PROC: 3E033VJ Introduction of Other Hormone into Peripheral Vein, Percutaneous Approach (ICD-10-PCS; 2017-06-14)
PROC: 10907ZC Drainage of Amniotic Fluid, Therapeutic from Products of Conception, Via Natural or Artificial Opening (ICD-10-PCS; 2017-06-14)
PROC: 3E0P7VZ Introduction of Hormone into Female Reproductive, Via Natural or Artificial Opening (ICD-10-PCS; 2017-06-14)
DX: O14.14 Severe pre-eclampsia complicating childbirth (principal); O70.0 First degree perineal laceration during delivery; O99.824 Streptococcus B carrier state complicating childbirth; Z3A.36 36 weeks gestation of pregnancy; Z37.0 Single live birth
CPT/HCPCS: 36415; 51702; 59020; 59025; 59409; 80053; 82803; 83735; 84550; 85027; 86850; 86900; 86901; A9270-GY; J0595; J2590; J2795; J3370; J3475; J7040; J7050; J7120

== ENCOUNTER 2017-07-01 20:13 | Emergency (ER) | payer MEDICAID ==
[2017-07-01] MEDS ORDERED: Ketorolac 60 MG/2 ML SDV IM ONE (22:03)
--- NOTE | 2017-07-01 22:03 | EDM.PDOC ---
ED HPI GENERAL MEDICAL PROBLEM - General Chief Complaint: Headache Stated Complaint: PT HAS HIGH BLOOD PRESSURE Time Seen by Provider: 07/01/17 21:57 Source of Information: Reports: Patient, Family History Limitations: Reports: No Limitations - History of Present Illness INITIAL COMMENTS - FREE TEXT/NARRATIVE: HISTORY AND PHYSICAL: []21-year-old female presents with concerns over a headache History of Present Illness: []Patient had a and epidural patient experienced headache after this, she has medication at home that she has taken twice. She is spoken to Dr. dimas who instructed her in how to take her medications. This was unsuccessful in halting this headache. She had an appointment on the to have a blood patch and did not go to this appointment. Review of Systems: As per history of present illness and below otherwise all systems reviewed and negative. Past medical history: As per history of present illness and as reviewed below otherwise noncontributory. Surgical history: As per history of present illness and as reviewed below otherwise noncontributory. Social history: No reported history of drug or alcohol abuse. Family history: As per history of present illness and as reviewed below otherwise noncontributory. Physical exam: Alert, answering questions appropriately, mild photophobia, mild nystagmus, HEENT: Atraumatic, normocehpalic, pupils reactive, negative for conjunctival pallor or scleral icterus, mucous membranes moist, throat clear, neck supple, nontender, trachea midline. Headache never goes away. Nithin positions does not affect how this headache occurs. Lungs: Clear to auscultation, breath sounds equal bilaterally, chest non tender. Heart: S1S2, regular, negative for clicks, rubs, or JVD. Abdomen: Soft, nondistended, nontender. Negative for masses or hepatossplenmegaly. Negative for costovertebral tenderness. Pelvis: Stable nontender. Genitourinary: Deferred. Rectal: Deferred Extremities: Atraumatic, negative for cords or calf pain. Neurovascular unremarkable. Neuro: Awake, alert, oriented. Cranial nerves II through XII unremarkable. Cerebellum unremarkable. Motor and sensory unremarkable throughout. Exam nonfocal. Patient does have a family member at bedside is able to take care of her infant. Diagnostics: [] Therapeutics: []Toradol Compazine Benadryl Impression: [] Plan: [] Definitive disposition and diagnosis as appropriate pending reevaluation and review of above. Onset: Gradual Duration: Day(s): Quality: Reports: Throbbing Severity: Moderate Improves with: Reports: None Worsens with: Reports: None Associated Symptoms: Reports: No Other Symptoms forehead Pain Score (Numeric/FACES): 10 - Related Data Allergies Allergy/AdvReac Type Severity Reaction Status Date / Time latex Allergy Rash Verified 07/01/17 20:38 cephalexin [From Keflex] AdvReac throat Verified 07/01/17 20:38 swelling Home Meds: Home Meds Anti-Hypertensive 07/01/17 [History] Past Medical History - Past Health History Medical/Surgical History: Denies Medical/Surgical History HEENT History: Reports: None Cardiovascular History: Reports: Hypertension Respiratory History: Reports: None Gastrointestinal History: Reports: None Genitourinary History: Reports: None [employer] History: Reports: None Musculoskeletal History: Reports: None Neurological History: Reports: None Psychiatric History: Reports: None Endocrine/Metabolic History: Reports: Obesity/BMI 30+ Hematologic History: Reports: None Immunologic History: Reports: None Oncologic (Cancer) History: Reports: None Dermatologic History: Reports: Cellulitis - Infectious Disease History Infectious Disease History: Reports: None - Past Surgical History Head Surgeries/Procedures: Reports: None HEENT Surgical History: Reports: None Cardiovascular Surgical History: Reports: None Respiratory Surgical History: Reports: None Female Surgical History: Reports: None Musculoskeletal Surgical History: Reports: Other (See Below) Other Musculoskeletal Surgeries/Procedures:: Hx of surgery for cellulitis, states they thought it was in her bone. Social & Family History - Family History Family Medical History: Noncontributory - Tobacco Use Smoking Status *Q: Never Smoker - Caffeine Use Caffeine Use: Reports: None - Recreational Drug Use Recreational Drug Use: No ED ROS GENERAL - Review of Systems Review Of Systems: ROS reveals no pertinent complaints other than HPI. - Physical Exam Exam: See Below (see dictation) Course - Vital Signs Last Recorded V/S: Last Vital Signs Temp 36.6 C 07/01/17 20:13 Pulse 82 07/01/17 20:13 Resp 18 07/01/17 20:13 BP 143/82 H 07/01/17 20:13 Pulse Ox 97 07/01/17 20:13 - Orders/Labs/Meds Meds: Medications Discontinued Medications Generic Name Dose Route Start Last Admin Trade Name Freq PRN Reason Stop Dose Admin Diphenhydramine HCl 50 mg 07/01/17 22:04 Benadryl PO 07/01/17 22:05 ONETIME ONE Ketorolac Tromethamine 60 mg 07/01/17 22:03 Toradol IM 07/01/17 22:04 ONETIME ONE Prochlorperazine Maleate 10 mg 07/01/17 22:04 Compazine PO 07/01/17 22:05 ONETIME ONE Departure - Departure Time of Disposition: 22:24 Disposition: Home, Self-Care 01 Condition: Good Clinical Impression: Tension-type headache - Discharge Information Instructions: Tension Headache, Adult, [id number] Referrals: PCP,None [Primary Care Provider] - Forms: ED Department Discharge Additional Instructions: The following information is given to patients seen in the emergency department who are being discharged to home. This information is to outline your options for follow-up care. We provide all patients seen in our emergency department with a follow-up referral. The need for follow-up, as well as the timing and circumstances, are variable depending upon the specifics of your emergency department visit. If you don't have a primary care physician on staff, we will provide you with a referral. We always advise you to contact your personal physician following an emergency department visit to inform them of the circumstance of the visit and for follow-up with them and/or the need for any referrals to a consulting specialist. The emergency department will also refer you to a specialist when appropriate. This referral assures that you have the opportunity for followup care with a specialist. All of these measure are taken in an effort to provide you with optimal care, which includes your followup. Under all circumstances we always encourage you to contact your private physician who remains a resource for coordinating your care. When calling for followup care, please make the office aware that this follow-up is from your recent emergency room visit. If for any reason you are refused follow-up, please contact the [facility] emergency department at and asked to speak to the emergency department charge nurse. Your headache is not felt to be a result of the epidural that you have As long as you have someone at home to take care of the would like you to go home and lay down and sleep Follow-up with your primary care on Monday
[2017-07-01] MEDS ORDERED: Prochlorperazine 10 MG Tab PO ONE (22:04)
[2017-07-01] MEDS ORDERED: diphenhydrAMINE 50 MG Cap PO ONE (22:04)
== END 2017-07-01 23:05 | disposition home or self-care (01) ==
LOC: MW.ED 20:13
DX: G44.209 Tension-type headache, unspecified, not intractable (principal); I10 Essential (primary) hypertension; E66.9 Obesity, unspecified; Z91.040 Latex allergy status; Z88.1 Allergy status to other antibiotic agents
CPT/HCPCS: 96372; 99283; A9270; J1885

== ENCOUNTER → 2017-07-05 | Day surgery (SDC) | payer MEDICAID ==
--- NOTE | 2017-07-05 14:17 | PCM.SN ---
- Free Text/Narrative Note: Asked to see this patient for eval of possibility of post dural puncture headache. Pt has been refered to neurology for w/u and has an appt July 27. Pt followed by her machine farmworker for severe pre eclampsia. Pt is now post and on labetalol, fioricet and Ibuprofen. PMH: PCOS, depression. 3 weeks post . Is breast feeding. induced at 36 weeks gest. Atraumatic epidural placement. No suggestion of positional headache while in hospital at time of delivery. Pt has had ED visits for headaches during her . Pt describes her headaches as bifrontal and bi mandibular. Not positional. Nothing makes them better and nothing makes them worse. Do not wake her at night. Was seen in ED 07/01/17 for headache. Not felt by ED staff to be PDPHA. I do not see any indication that the character of her headache(s) is similar to the presentation of a PDPHA. I see no indication for a trial of an epidural blood patch. I suggested she keep her appt with the neurologist in 3 weeks, and continue to follow with her machine farmworker. She would benefit from further diagnostic and therapeutic interventions. 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
== END ==
LOC: EDSTATUS 10:06 → MW.SDS 13:13
PROVIDERS: ATTEND Obstetrics & Gynecology
DX: O99.89 Other specified diseases and conditions complicating pregnancy, childbirth and the puerperium (principal); R51 Headache; Z79.899 Other long term (current) drug therapy; Z88.1 Allergy status to other antibiotic agents; Z91.040 Latex allergy status

== ENCOUNTER 2018-05-30 18:02 | Emergency (ER) | payer MEDICAID, OTHER ==
--- NOTE | 2018-05-30 18:17 | EDM.PDOC ---
ED HPI GENERAL MEDICAL PROBLEM - General Chief Complaint: DIGITIZER Problem Stated Complaint: THINKS SHE MAY BE PREGNENT Time Seen by Provider: 05/30/18 18:04 Source of Information: Reports: Patient History Limitations: Reports: No Limitations - History of Present Illness INITIAL COMMENTS - FREE TEXT/NARRATIVE: HISTORY AND PHYSICAL: History of present illness: Patient is a 22-year-old female who presents to the emergency room today with concerned she may be . Patient reports that she has had nausea in the mornings. States her menstrual periods have been irregular and sporadic as she has PCOS. Patient reports that she is unable to afford a home test and therefore came to the emergency room for evaluation of this. LMP: Unsure. , P:1. Review of systems: As per history of present illness and below otherwise all systems reviewed and negative. Past medical history: As per history of present illness and as reviewed below otherwise noncontributory. Surgical history: As per history of present illness and as reviewed below otherwise noncontributory. Social history: See social history for further information Family history: As per history of present illness and as reviewed below otherwise noncontributory. Physical exam: General: Well-developed and well-nourished 22-year-old female. Alert and oriented. Nontoxic appearing and in no acute distress. HEENT: Atraumatic, normocephalic, pupils equal and reactive bilaterally, negative for conjunctival pallor or scleral icterus, mucous membranes moist, TMs normal bilaterally, throat clear, neck supple, nontender, trachea midline. No drooling or trismus noted. No meningeal signs. No hot potato voice noted. Lungs: Clear to auscultation, breath sounds equal bilaterally, chest nontender. Heart: S1S2, regular rate and rhythm without overt murmur Abdomen: Soft, nondistended, nontender. Negative for masses or hepatosplenomegaly. Negative for costovertebral tenderness. Pelvis: Stable nontender. Genitourinary: Deferred. Rectal: Deferred. Skin: Intact, warm, dry. No lesions or rashes noted. Extremities: Atraumatic, moves all extremities per self with difficulty or deficits, negative for cords or calf pain. Neurovascular unremarkable. Neuro: Awake, alert, oriented. Cranial nerves II through XII unremarkable. Cerebellum unremarkable. Motor and sensory unremarkable throughout. Exam nonfocal. Notes: Negative test. Supportive care measures were reviewed and discussed. Voices understanding and is agreeable to plan of care. Denies any further questions or concerns at this time. Diagnostics: HCGU Therapeutics: None Prescription: None Impression: Encounter for testing Plan: 1. Negative test. 2. Please follow-up with your primary care provider as we discussed. Return to the ED as needed and as discussed. Definitive disposition and diagnosis as appropriate pending reevaluation and review of above. - Related Data Allergies Allergy/AdvReac Type Severity Reaction Status Date / Time latex Allergy Rash Verified 05/30/18 18:20 cephalexin [From Keflex] AdvReac throat Verified 05/30/18 18:20 swelling Home Meds: Home Meds PNV95/Ferrous Fumarate/FA [ Tablet] 1 tab PO DAILY 09/08/17 [History] Past Medical History - Past Health History Medical/Surgical History: Denies Medical/Surgical History HEENT History: Reports: None Cardiovascular History: Reports: Hypertension Respiratory History: Reports: None Gastrointestinal History: Reports: Cholelithiasis Genitourinary History: Reports: None DIGITIZER History: Reports: Other DIGITIZER History: Polycystic Ovaries Musculoskeletal History: Reports: None Neurological History: Reports: None Psychiatric History: Reports: None Endocrine/Metabolic History: Reports: Obesity/BMI 30+ Hematologic History: Reports: None Immunologic History: Reports: None Oncologic (Cancer) History: Reports: None Dermatologic History: Reports: Cellulitis - Infectious Disease History Infectious Disease History: Reports: None - Past Surgical History Head Surgeries/Procedures: Reports: None HEENT Surgical History: Reports: Eye Surgery Other HEENT Surgeries/Procedures: 5yrs old 1999 Cardiovascular Surgical History: Reports: None Respiratory Surgical History: Reports: None Female Surgical History: Reports: None Musculoskeletal Surgical History: Reports: Other (See Below) Other Musculoskeletal Surgeries/Procedures:: Hx of surgery for cellulitis, states they thought it was in her bone. Social & Family History - Family History Family Medical History: Noncontributory - Caffeine Use Caffeine Use: Reports: None ED ROS GENERAL - Review of Systems Review Of Systems: ROS reveals no pertinent complaints other than HPI. ED EXAM - Physical Exam Exam: See Below (See dictation) Course - Vital Signs Last Recorded V/S: Last Vital Signs Temp 97.1 F 05/30/18 18:20 Pulse 92 05/30/18 18:20 Resp 16 05/30/18 18:20 BP 134/75 05/30/18 18:20 Pulse Ox 98 05/30/18 18:20 - Orders/Labs/Meds Labs: Laboratory Tests 05/30/18 Range/Units 18:50 Urine HCG, Qual NEGATIVE (NEGATIVE) Departure - Departure Time of Disposition: 19:03 Disposition: Home, Self-Care 01 Clinical Impression: test negative - Discharge Information Referrals: PCP,None [Primary Care Provider] - Forms: ED Department Discharge Additional Instructions: The following information is given to patients seen in the emergency department who are being discharged to home. This information is to outline your options for follow-up care. We provide all patients seen in our emergency department with a follow-up referral. The need for follow-up, as well as the timing and circumstances, are variable depending upon the specifics of your emergency department visit. If you don't have a primary care physician on staff, we will provide you with a referral. We always advise you to contact your personal physician following an emergency department visit to inform them of the circumstance of the visit and for follow-up with them and/or the need for any referrals to a consulting specialist. The emergency department will also refer you to a specialist when appropriate. This referral assures that you have the opportunity for follow-up care with a specialist. All of these measure are taken in an effort to provide you with optimal care, which includes your follow-up. Under all circumstances we always encourage you to contact your private physician who remains a resource for coordinating your care. When calling for follow-up care, please make the office aware that this follow-up is from your recent emergency room visit. If for any reason you are refused follow-up, please contact the [facility] Emergency Department at and asked to speak to the emergency department charge nurse. [facility] [address] [place] [id number] [facility] [address] [place] [address] 1. Negative test. 2. Please follow-up with your primary care provider as we discussed. Return to the ED as needed and as discussed.
== END 2018-05-30 19:17 | disposition home or self-care (01) ==
LOC: MW.ED 18:02
DX: Z32.02 Encounter for pregnancy test, result negative (principal); I10 Essential (primary) hypertension; Z91.040 Latex allergy status; Z88.1 Allergy status to other antibiotic agents
CPT/HCPCS: 81025; 99282

== ENCOUNTER 2018-07-04 20:23 | Emergency (ER) | payer SELFPAY ==
--- NOTE | 2018-07-04 20:36 | EDM.PDOC ---
ED HPI GENERAL MEDICAL PROBLEM - General Chief Complaint: Behavioral/Psych Stated Complaint: CHECK Time Seen by Provider: 07/04/18 20:36 Source of Information: Reports: Patient - History of Present Illness INITIAL COMMENTS - FREE TEXT/NARRATIVE: HISTORY AND PHYSICAL: History of present illness: [Patient presents with suicidal ideation, she is having daily suicidal thoughts today she had posted on Facebook that today she was going to commit suicide she had a plan of harming herself by cutting She has a history of cutting in the past last episode was at age of 16, she also has a history of anxiety depression and bipolar disorder diagnosed for which she has not taken medications since she was a teenager she is currently treating her depression with marijuana She has a peripheral officer at current who has urged her to stop the marijuana as she has had a urine test scheduled upcoming at their next visit not been using marijuana lately ] Review of systems: As per history of present illness and below otherwise all systems reviewed and negative. Past medical history: As per history of present illness and as reviewed below otherwise noncontributory. Surgical history: As per history of present illness and as reviewed below otherwise noncontributory. Social history: No reported history of drug or alcohol abuse. Family history: As per history of present illness and as reviewed below otherwise noncontributory. Physical exam: HEENT: Atraumatic, normocephalic, pupils reactive, negative for conjunctival pallor or scleral icterus, mucous membranes moist, throat clear, neck supple, nontender, trachea midline. Lungs: Clear to auscultation, breath sounds equal bilaterally, chest nontender. Heart: S1S2, regular, negative for clicks, rubs, or JVD. Abdomen: Soft, nondistended, nontender. Negative for masses or hepatosplenomegaly. Negative for costovertebral tenderness. Pelvis: Stable nontender. Genitourinary: Deferred. Rectal: Deferred. Extremities: Atraumatic, negative for cords or calf pain. Neurovascular unremarkable. Neuro: Awake, alert, oriented. Cranial nerves II through XII unremarkable. Cerebellum unremarkable. Motor and sensory unremarkable throughout. Exam nonfocal. Diagnostics: [CBC CMP UA hCG TSH alcohol level drug screen aspirin and Tylenol levels ] Therapeutics: [None] Impression: [Medical screening exam] Suicidal ideation with plan Definitive disposition and diagnosis as appropriate pending reevaluation and review of above. - Related Data Allergies Allergy/AdvReac Type Severity Reaction Status Date / Time latex Allergy Rash Verified 07/04/18 20:40 cephalexin [From Keflex] AdvReac throat Verified 07/04/18 20:40 swelling Home Meds: Home Meds . 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 SENIOR TABLEAU DEVELOPER History: Polycystic Ovaries Musculoskeletal History: Reports: None Neurological History: Reports: None Psychiatric History: Reports: None Endocrine/Metabolic History: Reports: Obesity/BMI 30+ Hematologic History: Reports: None Immunologic History: Reports: None Oncologic (Cancer) History: Reports: None Dermatologic History: Reports: Cellulitis - Infectious Disease History Infectious Disease History: Reports: None - Past Surgical History Head Surgeries/Procedures: Reports: None HEENT Surgical History: Reports: Eye Surgery Other HEENT Surgeries/Procedures: 5yrs old 2000 Cardiovascular Surgical History: Reports: None Respiratory Surgical History: Reports: None Female Surgical History: Reports: None Musculoskeletal Surgical History: Reports: Other (See Below) Other Musculoskeletal Surgeries/Procedures:: Hx of surgery for cellulitis, states they thought it was in her bone. Social & Family History - Family History Family Medical History: Noncontributory - Caffeine Use Caffeine Use: Reports: None ED ROS GENERAL - Review of Systems Review Of Systems: See Below ED EXAM, GENERAL - Physical Exam Exam: See Below Course - Vital Signs Last Recorded V/S: Last Vital Signs Temp 96.8 F 07/04/18 20:34 Pulse 107 H 07/04/18 20:34 Resp 18 07/04/18 20:34 BP 141/107 H 07/04/18 20:34 Pulse Ox 97 07/04/18 20:34 - Orders/Labs/Meds Orders: Active Orders 24 hr Category Date Time Status EKG Documentation Completion [RC] STAT Care 07/04/18 20:36 Active CULTURE URINE [RM] Stat Lab 07/04/18 20:57 Received Labs: Laboratory Tests 07/04/18 07/04/18 07/04/18 Range/Units 20:48 20:48 20:57 WBC 11.32 H (4.0-11.0) K/uL RBC 5.19 (4.30-5.90) M/uL Hgb 15.4 (12.0-16.0) g/dL Hct 45.6 (36.0-46.0) % MCV 87.9 (80.0-98.0) fL MCH 29.7 (27.0-32.0) pg MCHC 33.8 (31.0-37.0) g/dL RDW Std Deviation 42.2 (28.0-62.0) fl RDW Coeff of Laura 13 (11.0-15.0) % Plt Count 307 (150-400) K/uL MPV 10.20 (7.40-12.00) fL Neut % (Auto) 64.2 (48.0-80.0) % Lymph % (Auto) 27.4 (16.0-40.0) % [place] % (Auto) 7.3 (0.0-15.0) % Eos % (Auto) 0.8 (0.0-7.0) % Baso % (Auto) 0.3 (0.0-1.5) % Neut # (Auto) 7.3 H (1.4-5.7) K/uL Lymph # (Auto) 3.1 H (0.6-2.4) K/uL [place] # (Auto) 0.8 (0.0-0.8) K/uL Eos # (Auto) 0.1 (0.0-0.7) K/uL Baso # (Auto) 0.0 (0.0-0.1) K/uL Nucleated RBC % 0.0 /100WBC Nucleated RBCs # 0 K/uL Sodium 138 (136-145) mmol/L Potassium 4.0 (3.5-5.1) mmol/L Chloride 104 (98-107) mmol/L Carbon Dioxide 25.2 (21.0-32.0) mmol/L BUN 18 (7.0-18.0) mg/dL Creatinine 0.8 (0.6-1.0) mg/dL Est Cr Clr Drug Dosing 116.25 mL/min Estimated GFR (MDRD) > 60.0 ml/min Glucose 117 H (74-106) mg/dL Calcium 9.2 (8.5-10.1) mg/dL Total Bilirubin 0.4 (0.2-1.0) mg/dL AST 25 (15-37) IU/L ALT 59 (14-63) IU/L Alkaline Phosphatase 89 (46-116) U/L Troponin I < 0.050 (0.000-0.056) ng/mL Total Protein 8.1 (6.4-8.2) g/dL Albumin 3.8 (3.4-5.0) g/dL Globulin 4.3 H (2.6-4.0) g/dL Albumin/Globulin Ratio 0.9 (0.9-1.6) TSH 3rd Generation 1.09 (0.36-3.74) uIU/mL Urine Color YELLOW Urine Appearance SLT CLOUDY Urine pH 6.0 (5.0-8.0) Ur Specific [place] 1.025 (1.001-1.035) Urine Protein NEGATIVE (NEGATIVE) mg/dL Urine Glucose (UA) NEGATIVE (NEGATIVE) mg/dL Urine Ketones NEGATIVE (NEGATIVE) mg/dL Urine Occult Blood NEGATIVE (NEGATIVE) Urine Nitrite NEGATIVE (NEGATIVE) Urine Bilirubin NEGATIVE (NEGATIVE) Urine Urobilinogen 0.2 (<2.0) EU/dL Ur Leukocyte Esterase TRACE H (NEGATIVE) Urine RBC 0-1 (0-2/HPF) Urine WBC 2-4 (0-5/HPF) Ur Epithelial Cells MANY (NONE-FEW) Urine Bacteria 1+ H (NEGATIVE) Urine HCG, Qual (NEGATIVE) Salicylates 2.2 (0-20) mg/dL Urine Opiates Screen (NEGATIVE) Ur Oxycodone Screen (NEGATIVE) Urine Methadone Screen (NEGATIVE) Acetaminophen <2.0 ug/mL Ur Barbiturates Screen (NEGATIVE) Ur Phencyclidine Scrn (NEGATIVE) Ur Amphetamine Screen (NEGATIVE) U Methamphetamines Scrn (NEGATIVE) U Benzodiazepines Scrn (NEGATIVE) U Cocaine Metab Screen (NEGATIVE) U Marijuana (THC) Screen (NEGATIVE) Ethyl Alcohol < 3.0 mg/dL 07/04/18 07/04/18 Range/Units 20:57 20:57 WBC (4.0-11.0) K/uL RBC (4.30-5.90) M/uL Hgb (12.0-16.0) g/dL Hct (36.0-46.0) % MCV (80.0-98.0) fL MCH (27.0-32.0) pg MCHC (31.0-37.0) g/dL RDW Std Deviation (28.0-62.0) fl RDW Coeff of Laura (11.0-15.0) % Plt Count (150-400) K/uL MPV (7.40-12.00) fL Neut % (Auto) (48.0-80.0) % Lymph % (Auto) (16.0-40.0) % [place] % (Auto) (0.0-15.0) % Eos % (Auto) (0.0-7.0) % Baso % (Auto) (0.0-1.5) % Neut # (Auto) (1.4-5.7) K/uL Lymph # (Auto) (0.6-2.4) K/uL [place] # (Auto) (0.0-0.8) K/uL Eos # (Auto) (0.0-0.7) K/uL Baso # (Auto) (0.0-0.1) K/uL Nucleated RBC % /100WBC Nucleated RBCs # K/uL Sodium (136-145) mmol/L Potassium (3.5-5.1) mmol/L Chloride (98-107) mmol/L Carbon Dioxide (21.0-32.0) mmol/L BUN (7.0-18.0) mg/dL Creatinine (0.6-1.0) mg/dL Est Cr Clr Drug Dosing mL/min Estimated GFR (MDRD) ml/min Glucose (74-106) mg/dL Calcium (8.5-10.1) mg/dL Total Bilirubin (0.2-1.0) mg/dL AST (15-37) IU/L ALT (14-63) IU/L Alkaline Phosphatase (46-116) U/L Troponin I (0.000-0.056) ng/mL Total Protein (6.4-8.2) g/dL Albumin (3.4-5.0) g/dL Globulin (2.6-4.0) g/dL Albumin/Globulin Ratio (0.9-1.6) TSH 3rd Generation (0.36-3.74) uIU/mL Urine Color Urine Appearance Urine pH (5.0-8.0) Ur Specific [place] (1.001-1.035) Urine Protein (NEGATIVE) mg/dL Urine Glucose (UA) (NEGATIVE) mg/dL Urine Ketones (NEGATIVE) mg/dL Urine Occult Blood (NEGATIVE) Urine Nitrite (NEGATIVE) Urine Bilirubin (NEGATIVE) Urine Urobilinogen (<2.0) EU/dL Ur Leukocyte Esterase (NEGATIVE) Urine RBC (0-2/HPF) Urine WBC (0-5/HPF) Ur Epithelial Cells (NONE-FEW) Urine Bacteria (NEGATIVE) Urine HCG, Qual NEGATIVE (NEGATIVE) Salicylates (0-20) mg/dL Urine Opiates Screen NEGATIVE (NEGATIVE) Ur Oxycodone Screen NEGATIVE (NEGATIVE) Urine Methadone Screen NEGATIVE (NEGATIVE) Acetaminophen ug/mL Ur Barbiturates Screen NEGATIVE (NEGATIVE) Ur Phencyclidine Scrn NEGATIVE (NEGATIVE) Ur Amphetamine Screen NEGATIVE (NEGATIVE) U Methamphetamines Scrn NEGATIVE (NEGATIVE) U Benzodiazepines Scrn NEGATIVE (NEGATIVE) U Cocaine Metab Screen NEGATIVE (NEGATIVE) U Marijuana (THC) Screen NEGATIVE (NEGATIVE) Ethyl Alcohol mg/dL Departure - Departure Time of Disposition: 21:51 Disposition: DC/Tfer to Acute Hospital 02 Condition: Poor Clinical Impression: Suicidal ideation - Discharge Information Referrals: PCP,None [Primary Care Provider] - Forms: ED Department Discharge - My Orders Last 24 Hours: My Active Orders 07/04/18 20:36 EKG Documentation Completion [RC] STAT 07/04/18 20:57 CULTURE URINE [RM] Stat - Assessment/Plan Last 24 Hours: My Active Orders 07/04/18 20:36 EKG Documentation Completion [RC] STAT 07/04/18 20:57 CULTURE URINE [RM] Stat
[2018-07-04 21:31] LABS: CHLORIDE,CL 104 mmol/L (98-107); SODIUM,NA 138 mmol/L (136-145)
[2018-07-04 21:34] LABS: ACETAMINOPHEN <2.0 ug/mL
== END 2018-07-04 22:25 ==
LOC: MW.ED 20:23
DX: R45.851 Suicidal ideations (principal); I10 Essential (primary) hypertension; E66.9 Obesity, unspecified; Z88.1 Allergy status to other antibiotic agents; Z91.041 Radiographic dye allergy status
CPT/HCPCS: 36415; 80053; 80305; 81001; 81025; 84443; 84484; 85025; 87086; 87088; 99285; G0480

== ENCOUNTER 2018-12-19 18:05 | Emergency (ER) | payer MEDICAID ==
--- NOTE | 2018-12-19 18:07 | EDM.PDOC ---
ED HPI GENERAL MEDICAL PROBLEM - General Stated Complaint: medical clearance Time Seen by Provider: 12/19/18 18:06 Source of Information: Reports: Patient History Limitations: Reports: No Limitations - History of Present Illness INITIAL COMMENTS - FREE TEXT/NARRATIVE: HISTORY AND PHYSICAL: History of present illness: Patient is a 23-year-old female who presents to the emergency room with complaints of suicidal ideation. She is escorted here by law enforcement as she has made multiple comments/statements to family members that she plans on killing herself. Patient states that she does have these spots almost daily. She reports having a history of schizophrenia, bipolar, depression and anger "issues". She states most recently she was transferred to [facility] in [place] on 2018 and was evaluated. She states that she refused to receive any treatment or take any medication and was discharged within 24 hours. She denies any alcohol, drugs or [id number] prescription medication usage. Review of systems: As per history of present illness and below otherwise all systems reviewed and negative. Past medical history: As per history of present illness and as reviewed below otherwise noncontributory. Surgical history: As per history of present illness and as reviewed below otherwise noncontributory. Social history: See social history for further information Family history: As per history of present illness and as reviewed below otherwise noncontributory. Physical exam: General: Well-developed and well-nourished 23-year-old female. Alert and oriented. Nontoxic appearing and in no acute distress. HEENT: Atraumatic, normocephalic, pupils equal and reactive bilaterally, negative for conjunctival pallor or scleral icterus, mucous membranes moist, trachea midline. No drooling or trismus noted. No meningeal signs. No hot potato voice noted. Lungs: Clear to auscultation, breath sounds equal bilaterally, chest nontender. Heart: S1S2, regular rate and rhythm without overt murmur Abdomen: Soft, nondistended, nontender. Skin: Intact, warm, dry. No lesions or rashes noted. Extremities: Atraumatic, moves all extremities per self without difficulty or deficits, negative for cords or calf pain. Neurovascular unremarkable. Neuro: Awake, alert, oriented. Cranial nerves II through XII unremarkable. Cerebellum unremarkable. Motor and sensory unremarkable throughout. Exam nonfocal. Notes: Lab work is unremarkable with the exception for her urine. She has slight UTI and is positive for marijuana. Dr Canchola, [facility], agreed to accept this patient. A hold has been placed on this patient. She will go via ground EMS> Diagnostics: CBC, CMP, UA, HCGU, Drug Screen, Acetaminophen, Salicylate, TSH Therapeutics: Macrobid Impression: Suicidal ideation UTI Plan: Transfer to [facility] via ground EMS Definitive disposition and diagnosis as appropriate pending reevaluation and review of above. - Related Data Allergies Allergy/AdvReac Type Severity Reaction Status Date / Time latex Allergy Rash Verified 12/19/18 18:21 cephalexin [From Keflex] AdvReac throat Verified 12/19/18 18:21 swelling Home Meds: Home Meds . 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 LUMBER LOADER History: Polycystic Ovaries Musculoskeletal History: Reports: None Neurological History: Reports: None Psychiatric History: Reports: None Endocrine/Metabolic History: Reports: Obesity/BMI 30+ Hematologic History: Reports: None Immunologic History: Reports: None Oncologic (Cancer) History: Reports: None Dermatologic History: Reports: Cellulitis - Infectious Disease History Infectious Disease History: Reports: None - Past Surgical History Head Surgeries/Procedures: Reports: None HEENT Surgical History: Reports: Eye Surgery Other HEENT Surgeries/Procedures: 5yrs old 2000 Cardiovascular Surgical History: Reports: None Respiratory Surgical History: Reports: None Female Surgical History: Reports: None Musculoskeletal Surgical History: Reports: Other (See Below) Other Musculoskeletal Surgeries/Procedures:: Hx of surgery for cellulitis, states they thought it was in her bone. Social & Family History - Family History Family Medical History: Noncontributory - Caffeine Use Caffeine Use: Reports: None ED ROS GENERAL - Review of Systems Review Of Systems: ROS reveals no pertinent complaints other than HPI. ED EXAM, GENERAL - Physical Exam Exam: See Below (See dictation) Course - Vital Signs Last Recorded V/S: Last Vital Signs Temp 98.2 F 12/19/18 18:17 Pulse 95 12/19/18 18:17 Resp 18 11/06/19 18:17 BP 148/96 H 12/19/18 18:17 Pulse Ox 98 12/19/18 18:17 - Orders/Labs/Meds Orders: Active Orders 24 hr Category Date Time Status ACETAMINOPHEN [CHEM] Stat Lab 12/19/18 18:50 Received COMPREHENSIVE METABOLIC PN,CMP [CHEM] Stat Lab 12/19/18 18:50 Received CULTURE URINE [RM] Stat Lab 12/19/18 18:36 Received SALICYLATE [CHEM] Stat Lab 12/19/18 18:50 Received Labs: Laboratory Tests 12/19/18 12/19/18 12/19/18 Range/Units 18:36 18:36 18:36 WBC (4.0-11.0) K/uL RBC (4.30-5.90) M/uL Hgb (12.0-16.0) g/dL Hct (36.0-46.0) % MCV (80.0-98.0) fL MCH (27.0-32.0) pg MCHC (31.0-37.0) g/dL RDW Std Deviation (28.0-62.0) fl RDW Coeff of Laura (11.0-15.0) % Plt Count (150-400) K/uL MPV (7.40-12.00) fL Neut % (Auto) (48.0-80.0) % Lymph % (Auto) (16.0-40.0) % [place] % (Auto) (0.0-15.0) % Eos % (Auto) (0.0-7.0) % Baso % (Auto) (0.0-1.5) % Neut # (Auto) (1.4-5.7) K/uL Lymph # (Auto) (0.6-2.4) K/uL [place] # (Auto) (0.0-0.8) K/uL Eos # (Auto) (0.0-0.7) K/uL Baso # (Auto) (0.0-0.1) K/uL Nucleated RBC % /100WBC Nucleated RBCs # K/uL Urine Color YELLOW Urine Appearance CLEAR Urine pH 5.5 (5.0-8.0) Ur Specific [place] >= 1.030 (1.001-1.035) Urine Protein 30 H (NEGATIVE) mg/dL Urine Glucose (UA) NEGATIVE (NEGATIVE) mg/dL Urine Ketones NEGATIVE (NEGATIVE) mg/dL Urine Occult Blood SMALL H (NEGATIVE) Urine Nitrite NEGATIVE (NEGATIVE) Urine Bilirubin NEGATIVE (NEGATIVE) Urine Urobilinogen 0.2 (<2.0) EU/dL Ur Leukocyte Esterase MODERATE H (NEGATIVE) Urine RBC 1-2 (0-2/HPF) Urine WBC 3-5 (0-5/HPF) Ur Epithelial Cells RARE (NONE-FEW) Urine Bacteria RARE (NEGATIVE) Urine HCG, Qual NEGATIVE (NEGATIVE) Urine Opiates Screen NEGATIVE (NEGATIVE) Ur Oxycodone Screen NEGATIVE (NEGATIVE) Urine Methadone Screen NEGATIVE (NEGATIVE) Ur Barbiturates Screen NEGATIVE (NEGATIVE) Ur Phencyclidine Scrn NEGATIVE (NEGATIVE) Ur Amphetamine Screen NEGATIVE (NEGATIVE) U Methamphetamines Scrn NEGATIVE (NEGATIVE) U Benzodiazepines Scrn NEGATIVE (NEGATIVE) U Cocaine Metab Screen NEGATIVE (NEGATIVE) U Marijuana (THC) Screen POSITIVE (NEGATIVE) 12/19/18 Range/Units 18:50 WBC 11.88 H (4.0-11.0) K/uL RBC 5.15 (4.30-5.90) M/uL Hgb 15.4 (12.0-16.0) g/dL Hct 45.4 (36.0-46.0) % MCV 88.2 (80.0-98.0) fL MCH 29.9 (27.0-32.0) pg MCHC 33.9 (31.0-37.0) g/dL RDW Std Deviation 41.6 (28.0-62.0) fl RDW Coeff of Laura 13 (11.0-15.0) % Plt Count 294 (150-400) K/uL MPV 9.90 (7.40-12.00) fL Neut % (Auto) 74.9 (48.0-80.0) % Lymph % (Auto) 19.0 (16.0-40.0) % [place] % (Auto) 5.5 (0.0-15.0) % Eos % (Auto) 0.3 (0.0-7.0) % Baso % (Auto) 0.3 (0.0-1.5) % Neut # (Auto) 8.9 H (1.4-5.7) K/uL Lymph # (Auto) 2.3 (0.6-2.4) K/uL [place] # (Auto) 0.7 (0.0-0.8) K/uL Eos # (Auto) 0.0 (0.0-0.7) K/uL Baso # (Auto) 0.0 (0.0-0.1) K/uL Nucleated RBC % 0.0 /100WBC Nucleated RBCs # 0 K/uL Urine Color Urine Appearance Urine pH (5.0-8.0) Ur Specific [place] (1.001-1.035) Urine Protein (NEGATIVE) mg/dL Urine Glucose (UA) (NEGATIVE) mg/dL Urine Ketones (NEGATIVE) mg/dL Urine Occult Blood (NEGATIVE) Urine Nitrite (NEGATIVE) Urine Bilirubin (NEGATIVE) Urine Urobilinogen (<2.0) EU/dL Ur Leukocyte Esterase (NEGATIVE) Urine RBC (0-2/HPF) Urine WBC (0-5/HPF) Ur Epithelial Cells (NONE-FEW) Urine Bacteria (NEGATIVE) Urine HCG, Qual (NEGATIVE) Urine Opiates Screen (NEGATIVE) Ur Oxycodone Screen (NEGATIVE) Urine Methadone Screen (NEGATIVE) Ur Barbiturates Screen (NEGATIVE) Ur Phencyclidine Scrn (NEGATIVE) Ur Amphetamine Screen (NEGATIVE) U Methamphetamines Scrn (NEGATIVE) U Benzodiazepines Scrn (NEGATIVE) U Cocaine Metab Screen (NEGATIVE) U Marijuana (THC) Screen (NEGATIVE) Meds: Medications Discontinued Medications Generic Name Dose Route Start Last Admin Trade Name Freq PRN Reason Stop Dose Admin Nitrofurantoin Macrocrystals 100 mg 12/19/18 19:11 Macrobid PO 12/19/18 19:12 ONETIME ONE Departure - Departure Time of Disposition: 19:27 Disposition: DC/Tfer to [facility]Unit [facility] Clinical Impression: Suicidal ideation UTI (urinary tract infection) Qualifiers: Urinary tract infection type: acute cystitis Hematuria presence: with hematuria Qualified Code(s): N30.01 - Acute cystitis with hematuria - Discharge Information Referrals: PCP,None [Primary Care Provider] - Forms: ED Department Discharge - My Orders Last 24 Hours: My Active Orders 12/19/18 18:36 CULTURE URINE [RM] Stat 12/19/18 18:50 ACETAMINOPHEN [CHEM] Stat COMPREHENSIVE METABOLIC PN,CMP [CHEM] Stat SALICYLATE [CHEM] Stat - Assessment/Plan Last 24 Hours: My Active Orders 12/19/18 18:36 CULTURE URINE [RM] Stat 12/19/18 18:50 ACETAMINOPHEN [CHEM] Stat COMPREHENSIVE METABOLIC PN,CMP [CHEM] Stat SALICYLATE [CHEM] Stat
[2018-12-19] MEDS ORDERED: Nitrofurantoin Monohydrate/Macrocrystalline 100 MG Cap PO ONE (19:11)
[2018-12-19 19:20] LABS: ACETAMINOPHEN <2.0 ug/mL; BLOOD UREA NITROGEN,BUN 16 mg/dL (7.0-18.0); CARBON DIOXIDE,CO2 23.9 mmol/L (21.0-32.0); CHLORIDE,CL 101 mmol/L (98-107); GLUCOSE RANDOM 118 mg/dL (74-106); POTASSIUM,K 4.1 mmol/L (3.5-5.1); SODIUM,NA 138 mmol/L (136-145)
== END 2018-12-19 20:05 ==
LOC: MW.ED 18:05
DX: R45.851 Suicidal ideations (principal); N30.01 Acute cystitis with hematuria; E66.9 Obesity, unspecified; I10 Essential (primary) hypertension; Z88.1 Allergy status to other antibiotic agents; Z91.040 Latex allergy status; Z68.43 Body mass index [BMI] 50.0-59.9, adult
CPT/HCPCS: 36415; 80053; 80305; 80329; 81001; 81025; 85025; 87086; 99285; A9270; 99284; G0480

== ENCOUNTER 2018-12-30 14:01 | Emergency (ER) | payer MEDICAID ==
[2018-12-30] MEDS ORDERED: Sodium Chloride 0.9% 1,000 ML IV ONE (14:12)
[2018-12-30] MEDS ORDERED: Ketorolac 30 MG/ML SDV IVPUSH ONE (14:12)
--- NOTE | 2018-12-30 14:15 | EDM.PDOC ---
ED HPI GENERAL MEDICAL PROBLEM - General Chief Complaint: Abdominal Pain Stated Complaint: PAIN RIGHT SIDE Time Seen by Provider: 12/30/18 14:02 Source of Information: Reports: Patient History Limitations: Reports: No Limitations - History of Present Illness INITIAL COMMENTS - FREE TEXT/NARRATIVE: HISTORY AND PHYSICAL: History of present illness: Patient is a 23-year-old female who presents to the emergency room today with complaints of right upper quadrant. She states this pain started earlier today and has progressively gotten more severe in intensity. I did see this patient on 12/19/18 for suicidal ideation, at that time she did have a urinary tract infection. I did give her one dose of Macrobid and sent her with a prescription , which she states was not filled/given. Patient denies any fever, chills, headache, change in vision, syncope or near syncope. Denies any chest pain, back pain, shortness of breath or cough. Denies any nausea, vomiting, diarrhea, constipation or dysuria. Has not noted any blood in urine or stool. Patient has been eating and drinking appropriately. Patient is unsure of her last menstrual period stating that she has [employer] [place] and does not have routine menses. States there is a chance of . Review of systems: As per history of present illness and below otherwise all systems reviewed and negative. Past medical history: As per history of present illness and as reviewed below otherwise noncontributory. Surgical history: As per history of present illness and as reviewed below otherwise noncontributory. Social history: See social history for further information Family history: As per history of present illness and as reviewed below otherwise noncontributory. Physical exam: General: Well-developed and well-nourished 23-year-old female. Alert and oriented. Nontoxic appearing and in no acute distress. HEENT: Atraumatic, normocephalic, pupils equal and reactive bilaterally, negative for conjunctival pallor or scleral icterus, mucous membranes moist, trachea midline. No drooling or trismus noted. No meningeal signs. No hot potato voice noted. Lungs: Clear to auscultation, breath sounds equal bilaterally, chest nontender. Heart: S1S2, regular rate and rhythm without overt murmur Abdomen: Soft, nondistended, obese, right upper quadrant tenderness. Negative for masses or hepatosplenomegaly. Negative for costovertebral tenderness. Pelvis: Stable and nontender. Skin: Intact, warm, dry. No lesions or rashes noted. Extremities: Atraumatic, moves all extremities per self without difficulty or deficits, negative for cords or calf pain. Neurovascular unremarkable. Neuro: Awake, alert, oriented. Cranial nerves II through XII unremarkable. Cerebellum unremarkable. Motor and sensory unremarkable throughout. Exam nonfocal. Notes: Patient does have the UTI which was untreated from her last visit. CT of the abdomen and pelvis shows bilateral ovarian cysts (patient states she has history of PCOS - and currently having no pelvic or low abd pain). Fatty infiltration of the liver. Otherwise unremarkable. We'll treat the UTI with oral antibiotics. Encouraged her to follow up with her [employer] for the ovarian cysts if she does start to develop any related pain. Supportive care measures were reviewed and discussed. Voices understanding and is agreeable to plan of care. Denies any further questions or concerns at this time. Diagnostics: CBC, CMP, UA, urine , lipase Therapeutics: IV fluid, Toradol, Cipro Prescription: Cipro Impression: Medication non-compliance UTI Ovarian cyst, bilaterally Plan: 1. Increase your oral fluids. YOU NEED to take your antibiotics as directed. 2. Tylenol and/or ibuprofen as needed for pain management. 3. There was an incidental finding of ovarian cysts. If you would like this further evaluated please follow-up with your [employer]. 4. Return to the ED as needed and as discussed. Definitive disposition and diagnosis as appropriate pending reevaluation and review of above. - Related Data Allergies Allergy/AdvReac Type Severity Reaction Status Date / Time latex Allergy Rash Verified 12/30/18 14:11 cephalexin [From Keflex] AdvReac throat Verified 12/30/18 14:11 swelling Home Meds: Home Meds . [No Known Home Meds] 07/04/18 [History] Past Medical History - Past Health History Medical/Surgical History: Denies Medical/Surgical History HEENT History: Reports: None Other HEENT History: wears glasses Cardiovascular History: Reports: Hypertension Respiratory History: Reports: None Gastrointestinal History: Reports: Cholelithiasis Genitourinary History: Reports: None [employer] History: Reports: Other [employer] History: Polycystic Ovaries Musculoskeletal History: Reports: None Neurological History: Reports: None Psychiatric History: Reports: None Other Psychiatric History: cutting Endocrine/Metabolic History: Reports: Obesity/BMI 30+ Hematologic History: Reports: None Immunologic History: Reports: None Oncologic (Cancer) History: Reports: None Dermatologic History: Reports: Cellulitis - Infectious Disease History Infectious Disease History: Reports: None - Past Surgical History Head Surgeries/Procedures: Reports: None HEENT Surgical History: Reports: Eye Surgery Other HEENT Surgeries/Procedures: 5yrs old 1999 Cardiovascular Surgical History: Reports: None Respiratory Surgical History: Reports: None Female Surgical History: Reports: None Musculoskeletal Surgical History: Reports: Other (See Below) Other Musculoskeletal Surgeries/Procedures:: Hx of surgery for cellulitis, states they thought it was in her bone. Social & Family History - Family History Family Medical History: Noncontributory - Caffeine Use Caffeine Use: Reports: None ED ROS GENERAL - Review of Systems Review Of Systems: Comprehensive ROS is negative, except as noted in HPI. ED EXAM, GI/ABD - Physical Exam Exam: See Below (See dictation) Course - Vital Signs Last Recorded V/S: Last Vital Signs Temp 97.4 F 12/30/18 14:11 Pulse 91 12/30/18 14:11 Resp 18 12/30/18 14:11 BP 134/95 H 12/30/18 14:11 Pulse Ox 96 12/30/18 14:11 - Orders/Labs/Meds Orders: Active Orders 24 hr Category Date Time Status CULTURE URINE [RM] Stat Lab 12/30/18 14:18 Received Labs: Laboratory Tests 12/30/18 12/30/18 12/30/18 Range/Units 14:18 14:18 14:30 WBC 10.91 (4.0-11.0) K/uL RBC 5.13 (4.30-5.90) M/uL Hgb 15.2 (12.0-16.0) g/dL Hct 45.1 (36.0-46.0) % MCV 87.9 (80.0-98.0) fL MCH 29.6 (27.0-32.0) pg MCHC 33.7 (31.0-37.0) g/dL RDW Std Deviation 41.4 (28.0-62.0) fl RDW Coeff of Laura 13 (11.0-15.0) % Plt Count 301 (150-400) K/uL MPV 9.60 (7.40-12.00) fL Neut % (Auto) 64.5 (48.0-80.0) % Lymph % (Auto) 24.5 (16.0-40.0) % [place] % (Auto) 8.9 (0.0-15.0) % Eos % (Auto) 1.9 (0.0-7.0) % Baso % (Auto) 0.2 (0.0-1.5) % Neut # (Auto) 7.0 H (1.4-5.7) K/uL Lymph # (Auto) 2.7 H (0.6-2.4) K/uL [place] # (Auto) 1.0 H (0.0-0.8) K/uL Eos # (Auto) 0.2 (0.0-0.7) K/uL Baso # (Auto) 0.0 (0.0-0.1) K/uL Nucleated RBC % 0.0 /100WBC Nucleated RBCs # 0 K/uL Sodium (136-145) mmol/L Potassium (3.5-5.1) mmol/L Chloride (98-107) mmol/L Carbon Dioxide (21.0-32.0) mmol/L BUN (7.0-18.0) mg/dL Creatinine (0.6-1.0) mg/dL Est Cr Clr Drug Dosing mL/min Estimated GFR (MDRD) ml/min Glucose (74-106) mg/dL Calcium (8.5-10.1) mg/dL Total Bilirubin (0.2-1.0) mg/dL AST (15-37) IU/L ALT (14-63) IU/L Alkaline Phosphatase (46-116) U/L Total Protein (6.4-8.2) g/dL Albumin (3.4-5.0) g/dL Globulin (2.6-4.0) g/dL Albumin/Globulin Ratio (0.9-1.6) Lipase (73-393) U/L Urine Color YELLOW Urine Appearance HAZY Urine pH 6.0 (5.0-8.0) Ur Specific [place] >= 1.030 (1.001-1.035) Urine Protein 30 H (NEGATIVE) mg/dL Urine Glucose (UA) NEGATIVE (NEGATIVE) mg/dL Urine Ketones NEGATIVE (NEGATIVE) mg/dL Urine Occult Blood NEGATIVE (NEGATIVE) Urine Nitrite NEGATIVE (NEGATIVE) Urine Bilirubin SMALL H (NEGATIVE) Urine Urobilinogen 0.2 (<2.0) EU/dL Ur Leukocyte Esterase TRACE H (NEGATIVE) Urine RBC 0-2 (0-2/HPF) Urine WBC 4-7 (0-5/HPF) Ur Epithelial Cells FEW (NONE-FEW) Amorphous Sediment MODERATE (NEGATIVE) Urine Bacteria 1+ H (NEGATIVE) Urine Mucus MODERATE (NONE-MOD) Urine HCG, Qual NEGATIVE (NEGATIVE) 12/30/18 Range/Units 14:30 WBC (4.0-11.0) K/uL RBC (4.30-5.90) M/uL Hgb (12.0-16.0) g/dL Hct (36.0-46.0) % MCV (80.0-98.0) fL MCH (27.0-32.0) pg MCHC (31.0-37.0) g/dL RDW Std Deviation (28.0-62.0) fl RDW Coeff of Laura (11.0-15.0) % Plt Count (150-400) K/uL MPV (7.40-12.00) fL Neut % (Auto) (48.0-80.0) % Lymph % (Auto) (16.0-40.0) % [place] % (Auto) (0.0-15.0) % Eos % (Auto) (0.0-7.0) % Baso % (Auto) (0.0-1.5) % Neut # (Auto) (1.4-5.7) K/uL Lymph # (Auto) (0.6-2.4) K/uL [place] # (Auto) (0.0-0.8) K/uL Eos # (Auto) (0.0-0.7) K/uL Baso # (Auto) (0.0-0.1) K/uL Nucleated RBC % /100WBC Nucleated RBCs # K/uL Sodium 137 (136-145) mmol/L Potassium 4.3 (3.5-5.1) mmol/L Chloride 105 (98-107) mmol/L Carbon Dioxide 24.4 (21.0-32.0) mmol/L BUN 11 (7.0-18.0) mg/dL Creatinine 0.8 (0.6-1.0) mg/dL Est Cr Clr Drug Dosing 115.28 mL/min Estimated GFR (MDRD) > 60.0 ml/min Glucose 136 H (74-106) mg/dL Calcium 8.5 (8.5-10.1) mg/dL Total Bilirubin 0.3 (0.2-1.0) mg/dL AST 19 (15-37) IU/L ALT 48 (14-63) IU/L Alkaline Phosphatase 95 (46-116) U/L Total Protein 7.9 (6.4-8.2) g/dL Albumin 3.6 (3.4-5.0) g/dL Globulin 4.3 H (2.6-4.0) g/dL Albumin/Globulin Ratio 0.8 L (0.9-1.6) Lipase 103 (73-393) U/L Urine Color Urine Appearance Urine pH (5.0-8.0) Ur Specific [place] (1.001-1.035) Urine Protein (NEGATIVE) mg/dL Urine Glucose (UA) (NEGATIVE) mg/dL Urine Ketones (NEGATIVE) mg/dL Urine Occult Blood (NEGATIVE) Urine Nitrite (NEGATIVE) Urine Bilirubin (NEGATIVE) Urine Urobilinogen (<2.0) EU/dL Ur Leukocyte Esterase (NEGATIVE) Urine RBC (0-2/HPF) Urine WBC (0-5/HPF) Ur Epithelial Cells (NONE-FEW) Amorphous Sediment (NEGATIVE) Urine Bacteria (NEGATIVE) Urine Mucus (NONE-MOD) Urine HCG, Qual (NEGATIVE) Meds: Medications Discontinued Medications Generic Name Dose Route Start Last Admin Trade Name Bruce PRN Reason Stop Dose Admin Ciprofloxacin 500 mg 12/30/18 14:54 12/30/18 15:21 Ciprofloxacin Hcl PO 12/30/18 14:55 500 mg ONETIME ONE Administration Sodium Chloride 1,000 mls @ 999 mls/hr 12/30/18 14:12 12/30/18 14:42 Normal Saline IV 12/30/18 15:12 999 mls/hr STAT ONE Administration Iopamidol 100 ml 12/30/18 15:37 12/30/18 15:37 Isovue Multipack-370 (76%) IVPUSH 12/30/18 15:38 100 ml ONETIME STA Administration Ketorolac Tromethamine 30 mg 12/30/18 14:12 12/30/18 14:43 Toradol IVPUSH 12/30/18 14:13 30 mg ONETIME ONE Administration Departure - Departure Time of Disposition: 16:11 Disposition: Home, Self-Care 01 Clinical Impression: Noncompliance with medication regimen, Bilateral ovarian cysts UTI (urinary tract infection) Qualifiers: Urinary tract infection type: acute cystitis Hematuria presence: with hematuria Qualified Code(s): N30.01 - Acute cystitis with hematuria - Discharge Information Instructions: Urinary Tract Infection, Adult, [id number] Referrals: PCP,None [Primary Care Provider] - Forms: ED Department Discharge Additional Instructions: The following information is given to patients seen in the emergency department who are being discharged to home. This information is to outline your options for follow-up care. We provide all patients seen in our emergency department with a follow-up referral. The need for follow-up, as well as the timing and circumstances, are variable depending upon the specifics of your emergency department visit. If you don't have a primary care physician on staff, we will provide you with a referral. We always advise you to contact your personal physician following an emergency department visit to inform them of the circumstance of the visit and for follow-up with them and/or the need for any referrals to a consulting specialist. The emergency department will also refer you to a specialist when appropriate. This referral assures that you have the opportunity for follow-up care with a specialist. All of these measure are taken in an effort to provide you with optimal care, which includes your follow-up. Under all circumstances we always encourage you to contact your private physician who remains a resource for coordinating your care. When calling for follow-up care, please make the office aware that this follow-up is from your recent emergency room visit. If for any reason you are refused follow-up, please contact the [facility] Emergency Department at and asked to speak to the emergency department charge nurse. [facility] [address] [place] [id number] [id number] 1. Increase your oral fluids. YOU NEED to take your antibiotics as directed. 2. Tylenol and/or ibuprofen as needed for pain management. 3. There was an incidental finding of ovarian cysts. If you would like this further evaluated please follow-up with your [employer]. 4. Return to the ED as needed and as discussed. - My Orders Last 24 Hours: My Active Orders 12/30/18 14:18 CULTURE URINE [RM] Stat - Assessment/Plan Last 24 Hours: My Active Orders 12/30/18 14:18 CULTURE URINE [RM] Stat
[2018-12-30] MEDS ORDERED: Ciprofloxacin 500 MG Tab PO ONE (14:54)
[2018-12-30 15:00] LABS: BLOOD UREA NITROGEN,BUN 11 mg/dL (7.0-18.0); CARBON DIOXIDE,CO2 24.4 mmol/L (21.0-32.0); CHLORIDE,CL 105 mmol/L (98-107); GLUCOSE RANDOM 136 mg/dL (74-106); LIPASE 103 U/L (73-393); POTASSIUM,K 4.3 mmol/L (3.5-5.1); SODIUM,NA 137 mmol/L (136-145)
[2018-12-30] MEDS ORDERED: Iopamidol 755 MG/ML 500 ML Multipack Bottle IVPUSH STA (15:37)
--- NOTE | 2018-12-30 15:58 | CT ---
INDICATION: Right upper quadrant abdominal pain. TECHNIQUE: Multiple axial images were obtained from the diaphragm to the symphysis pubis after administered of 100 mL of Isovue-370 intravenously. Sagittal and coronal re-formatted images were obtained. COMPARISON: None. FINDINGS: The visualized portion of the lung bases are clear. The liver is of diffuse decreased attenuation consistent with fatty infiltration of the liver. The spleen, pancreas, gallbladder and adrenal glands are unremarkable. There is no mass or hydronephrosis seen in the kidneys. There is no evidence of a bowel obstruction. The appendix is visualized in the right lower quadrant and is unremarkable. The abdominal aorta is normal in caliber. There is no adenopathy. There are bilateral ovarian cysts. In the left ovary this measures 5.6 x 5.2 cm and in the right ovary 5.6 x 4.3 cm with a 2nd 1.7 cm cyst. There is no free fluid in the pelvis. IMPRESSION: 1. Bilateral ovarian cyst as described above. A pelvic ultrasound may be helpful to further evaluate these. 2. Fatty infiltration of the liver. 3. Normal appendix seen in the right lower quadrant. Dictated by Ismael Rueda MD @ 12/30/2018 3:56:12 PM Please note that all CT scans at this facility use dose modulation, iterative reconstruction, and/or weight-based dosing when appropriate to reduce radiation dose to as low as reasonably achievable. Dictated by: Ismael Rueda MD @ 12/30/2018 15:56:40 (Electronically Signed)
== END 2018-12-30 16:41 | disposition home or self-care (01) ==
LOC: MW.ED 14:01
DX: N83.202 Unspecified ovarian cyst, left side (principal); N83.201 Unspecified ovarian cyst, right side; N30.01 Acute cystitis with hematuria; Z91.14 Patient's other noncompliance with medication regimen; E66.9 Obesity, unspecified; I10 Essential (primary) hypertension; Z88.1 Allergy status to other antibiotic agents; Z91.040 Latex allergy status; Z68.42 Body mass index [BMI] 45.0-49.9, adult
CPT/HCPCS: 36415; 74177; 80053; 81001; 81025; 83690; 85025; 87086; 96361; 96374; 99284; A9270; J1885; J7040; Q9967; J7030

== ENCOUNTER 2019-09-02 18:43 | Emergency (ER) | payer MEDICAID ==
--- NOTE | 2019-09-02 18:55 | EDM.PDOCBH ---
ED HPI GENERAL MEDICAL PROBLEM - General Chief Complaint: Behavioral/Psych Stated Complaint: SUICIDAL IDEATION Time Seen by Provider: 09/02/19 18:45 Source of Information: Reports: Patient History Limitations: Reports: No Limitations - History of Present Illness INITIAL COMMENTS - FREE TEXT/NARRATIVE: HISTORY AND PHYSICAL: History of present illness: Patient is a 24-year-old female who presents to the emergency room with complaints of suicidal ideation. She states she has been out of her Buspar, Geodon, and Prozac x 2 weeks. Initially she was unable to remember who had pr escribed her medications and when she had followed up with [facility] they wanted her to fill out some paperwork to get assistance with her med refills/seeing a provider. She states "I got busy" and soon started having thoughts of self-harm. She does have a history of anxiety, depression, self harm and bipolar disorder. Over the past several days she has been thinking about slitting her wrists or shooting herself in the head. Presents to the emergency room today stating she wants "to get help before it gets too bad". Denies any self harm, drug or alcohol abuse. Patient denies any fever, chills, headache, change in vision, syncope or near syncope. Denies any chest pain, back pain, shortness of breath or cough. Denies any GI or symptoms. States there is a chance of . Patient has been eating and drinking appropriately. No COVID concerns. Review of systems: As per history of present illness and below otherwise all systems reviewed and negative. Past medical history: As per history of present illness and as reviewed below otherwise noncontributory. Surgical history: As per history of present illness and as reviewed below otherwise noncontributory. Social history: See social history for further information Family history: As per history of present illness and as reviewed below otherwise noncontributory. Physical exam: General: Well-developed and well-nourished 24-year-old female. Alert and oriented. Nontoxic-appearing and in no acute distress. HEENT: Atraumatic, normocephalic, pupils equal and reactive bilaterally, negative for conjunctival pallor or scleral icterus, mucous membranes moist, TMs normal bilaterally, throat clear, neck supple, nontender, trachea midline. No drooling or trismus noted. No meningeal signs. No hot potato voice noted. Lungs: Clear to auscultation, breath sounds equal bilaterally, chest nontender. Heart: S1S2, regular rate and rhythm without overt murmur Abdomen: Soft, nondistended, nontender. Negative for masses or hepatosplenomegaly. Negative for costovertebral tenderness. Pelvis: Stable nontender. Skin: Intact, warm, dry. No lesions or rashes noted. Extremities: Atraumatic, moves all extremities per self without difficulty or deficits, negative for cords or calf pain. Neurovascular unremarkable. Neuro: Awake, alert, oriented. Cranial nerves II through XII unremarkable. Cerebellum unremarkable. Motor and sensory unremarkable throughout. Exam nonfocal. Notes: Lab shows slightly elevated WBC, without source. Otherwise lab work is unremarkable. VSS. She has been cooperative and agreeable with cares. Physical examination is within normal limits, she is on an emergency admission hold due to her SI. 2024: [facility] was contacted. Dr Novoa, psychiatrist on-call is agreeable to accepting this patient. I spoke with Dr. Carvajal in the ER, she was informed of patient and is agreeable to accepting this patient for further care and management. Patient is aware of plan and continues to be agreeable with plan of care. Diagnostics: CBC, CMP, TSH, UA, HCGU, Acetaminophen, salicylate, EtOH Therapeutics: None Impression: Suicidal ideation Medication noncompliance Plan: EMS transfer to [facility] Definitive disposition and diagnosis as appropriate pending reevaluation and review of above. - Related Data Allergies Allergy/AdvReac Type Severity Reaction Status Date / Time amoxicillin Allergy Airway Verified 09/02/19 18:47 Tightness latex Allergy Rash Verified 09/02/19 18:47 Penicillins Allergy Airway Verified 09/02/19 18:47 Tightness cephalexin [From Keflex] AdvReac throat Verified 09/02/19 18:47 swelling Home Meds: Home Meds FLUoxetine HCl [Prozac] 1 tab PO DAILY 09/02/19 [History] Metoprolol Succinate [[place] Sprinkle] 1 dose PO BEDTIME 09/02/19 [History] Ziprasidone Mesylate [Geodon] 1 dose PO BID 09/02/19 [History] busPIRone [Buspar] 1 tab PO BID 09/02/19 [History] Past Medical History - Past Health History Medical/Surgical History: Denies Medical/Surgical History HEENT History: Reports: None Other HEENT History: wears glasses Cardiovascular History: Reports: Hypertension Respiratory History: Reports: None Gastrointestinal History: Reports: Cholelithiasis Genitourinary History: Reports: None RECEIVER History: Reports: Other RECEIVER History: Polycystic Ovaries Musculoskeletal History: Reports: None Neurological History: Reports: None Psychiatric History: Reports: None Other Psychiatric History: cutting Endocrine/Metabolic History: Reports: Obesity/BMI 30+ Hematologic History: Reports: None Immunologic History: Reports: None Oncologic (Cancer) History: Reports: None Dermatologic History: Reports: Cellulitis - Infectious Disease History Infectious Disease History: Reports: None - Past Surgical History Head Surgeries/Procedures: Reports: None HEENT Surgical History: Reports: Eye Surgery Other HEENT Surgeries/Procedures: 5yrs old 1999 Cardiovascular Surgical History: Reports: None Respiratory Surgical History: Reports: None Female Surgical History: Reports: None Musculoskeletal Surgical History: Reports: Other (See Below) Other Musculoskeletal Surgeries/Procedures:: Hx of surgery for cellulitis, states they thought it was in her bone. Social & Family History - Family History Family Medical History: Noncontributory - Caffeine Use Caffeine Use: Reports: None ED ROS GENERAL - Review of Systems Review Of Systems: Comprehensive ROS is negative, except as noted in HPI. ED EXAM, BEHAVIORAL HEALTH - Physical Exam Exam: See Below (See dictation) COURSE, BEHAVIORAL HEALTH COMP - Course Vital Signs: Last Vital Signs Temp 97.8 F 09/02/19 18:49 Pulse 93 09/02/19 18:49 Resp 18 09/02/19 18:49 BP 133/84 09/02/19 18:49 Pulse Ox 99 09/02/19 18:49 Orders, Labs, Meds: Active Orders 24 hr Category Date Time Status CULTURE URINE [RM] Stat Lab 09/02/19 18:55 Received Laboratory Tests 09/02/19 09/02/19 09/02/19 Range/Units 18:55 18:55 18:55 WBC (4.0-11.0) K/uL RBC (4.30-5.90) M/uL Hgb (12.0-16.0) g/dL Hct (36.0-46.0) % MCV (80.0-98.0) fL MCH (27.0-32.0) pg MCHC (31.0-37.0) g/dL RDW Std Deviation (28.0-62.0) fl RDW Coeff of Laura (11.0-15.0) % Plt Count (150-400) K/uL MPV (7.40-12.00) fL Neut % (Auto) (48.0-80.0) % Lymph % (Auto) (16.0-40.0) % [place] % (Auto) (0.0-15.0) % Eos % (Auto) (0.0-7.0) % Baso % (Auto) (0.0-1.5) % Neut # (Auto) (1.4-5.7) K/uL Lymph # (Auto) (0.6-2.4) K/uL [place] # (Auto) (0.0-0.8) K/uL Eos # (Auto) (0.0-0.7) K/uL Baso # (Auto) (0.0-0.1) K/uL Nucleated RBC % /100WBC Nucleated RBCs # K/uL Sodium (136-145) mmol/L Potassium (3.5-5.1) mmol/L Chloride (98-107) mmol/L Carbon Dioxide (21.0-32.0) mmol/L BUN (7.0-18.0) mg/dL Creatinine (0.6-1.0) mg/dL Est Cr Clr Drug Dosing mL/min Estimated GFR (MDRD) ml/min Glucose (74-106) mg/dL Calcium (8.5-10.1) mg/dL Total Bilirubin (0.2-1.0) mg/dL AST (15-37) IU/L ALT (14-63) IU/L Alkaline Phosphatase (46-116) U/L Total Protein (6.4-8.2) g/dL Albumin (3.4-5.0) g/dL Globulin (2.6-4.0) g/dL Albumin/Globulin Ratio (0.9-1.6) TSH 3rd Generation (0.36-3.74) uIU/mL Urine Color YELLOW Urine Appearance CLEAR Urine pH 5.5 (5.0-8.0) Ur Specific [place] 1.025 (1.001-1.035) Urine Protein NEGATIVE (NEGATIVE) mg/dL Urine Glucose (UA) >=1000 (NEGATIVE) mg/dL Urine Ketones NEGATIVE (NEGATIVE) mg/dL Urine Occult Blood MODERATE H (NEGATIVE) Urine Nitrite NEGATIVE (NEGATIVE) Urine Bilirubin NEGATIVE (NEGATIVE) Urine Urobilinogen 0.2 (<2.0) EU/dL Ur Leukocyte Esterase TRACE H (NEGATIVE) Urine RBC 2-3 (0-2/HPF) Urine WBC 0-1 (0-5/HPF) Ur Epithelial Cells RARE (NONE-FEW) Urine Bacteria RARE (NEGATIVE) Urine HCG, Qual NEGATIVE (NEGATIVE) Salicylates (0-20) mg/dL Urine Opiates Screen NEGATIVE (NEGATIVE) Ur Oxycodone Screen NEGATIVE (NEGATIVE) Urine Methadone Screen NEGATIVE (NEGATIVE) Acetaminophen ug/mL Ur Barbiturates Screen NEGATIVE (NEGATIVE) Ur Phencyclidine Scrn NEGATIVE (NEGATIVE) Ur Amphetamine Screen NEGATIVE (NEGATIVE) U Methamphetamines Scrn NEGATIVE (NEGATIVE) U Benzodiazepines Scrn NEGATIVE (NEGATIVE) U Cocaine Metab Screen NEGATIVE (NEGATIVE) U Marijuana (THC) Screen NEGATIVE (NEGATIVE) Ethyl Alcohol mg/dL 09/02/19 09/02/19 Range/Units 19:07 19:07 WBC 13.88 H (4.0-11.0) K/uL RBC 5.03 (4.30-5.90) M/uL Hgb 15.0 (12.0-16.0) g/dL Hct 45.2 (36.0-46.0) % MCV 89.9 (80.0-98.0) fL MCH 29.8 (27.0-32.0) pg MCHC 33.2 (31.0-37.0) g/dL RDW Std Deviation 41.5 (28.0-62.0) fl RDW Coeff of Laura 13 (11.0-15.0) % Plt Count 295 (150-400) K/uL MPV 9.80 (7.40-12.00) fL Neut % (Auto) 69.7 (48.0-80.0) % Lymph % (Auto) 22.6 (16.0-40.0) % [place] % (Auto) 7.0 (0.0-15.0) % Eos % (Auto) 0.6 (0.0-7.0) % Baso % (Auto) 0.1 (0.0-1.5) % Neut # (Auto) 9.7 H (1.4-5.7) K/uL Lymph # (Auto) 3.1 H (0.6-2.4) K/uL [place] # (Auto) 1.0 H (0.0-0.8) K/uL Eos # (Auto) 0.1 (0.0-0.7) K/uL Baso # (Auto) 0.0 (0.0-0.1) K/uL Nucleated RBC % 0.0 /100WBC Nucleated RBCs # 0 K/uL Sodium 136 (136-145) mmol/L Potassium 4.4 (3.5-5.1) mmol/L Chloride 100 (98-107) mmol/L Carbon Dioxide 20.2 L (21.0-32.0) mmol/L BUN 14 (7.0-18.0) mg/dL Creatinine 0.9 (0.6-1.0) mg/dL Est Cr Clr Drug Dosing 101.60 mL/min Estimated GFR (MDRD) > 60.0 ml/min Glucose 306 H (74-106) mg/dL Calcium 9.2 (8.5-10.1) mg/dL Total Bilirubin 0.3 (0.2-1.0) mg/dL AST 32 (15-37) IU/L ALT 45 (14-63) IU/L Alkaline Phosphatase 122 H (46-116) U/L Total Protein 7.8 (6.4-8.2) g/dL Albumin 3.5 (3.4-5.0) g/dL Globulin 4.3 H (2.6-4.0) g/dL Albumin/Globulin Ratio 0.8 L (0.9-1.6) TSH 3rd Generation 0.99 (0.36-3.74) uIU/mL Urine Color Urine Appearance Urine pH (5.0-8.0) Ur Specific [place] (1.001-1.035) Urine Protein (NEGATIVE) mg/dL Urine Glucose (UA) (NEGATIVE) mg/dL Urine Ketones (NEGATIVE) mg/dL Urine Occult Blood (NEGATIVE) Urine Nitrite (NEGATIVE) Urine Bilirubin (NEGATIVE) Urine Urobilinogen (<2.0) EU/dL Ur Leukocyte Esterase (NEGATIVE) Urine RBC (0-2/HPF) Urine WBC (0-5/HPF) Ur Epithelial Cells (NONE-FEW) Urine Bacteria (NEGATIVE) Urine HCG, Qual (NEGATIVE) Salicylates 1.2 (0-20) mg/dL Urine Opiates Screen (NEGATIVE) Ur Oxycodone Screen (NEGATIVE) Urine Methadone Screen (NEGATIVE) Acetaminophen <2.0 ug/mL Ur Barbiturates Screen (NEGATIVE) Ur Phencyclidine Scrn (NEGATIVE) Ur Amphetamine Screen (NEGATIVE) U Methamphetamines Scrn (NEGATIVE) U Benzodiazepines Scrn (NEGATIVE) U Cocaine Metab Screen (NEGATIVE) U Marijuana (THC) Screen (NEGATIVE) Ethyl Alcohol < 3.0 mg/dL Departure - Departure Time of Disposition: 20:34 Disposition: DC/Tfer to Psych Hosp/Unit [facility] Clinical Impression: Noncompliance with medication regimen, Suicidal ideation - Discharge Information Referrals: PCP,None [Primary Care Provider] - Forms: ED Department Discharge Sepsis Event Note (ED) - Focused Exam Vital Signs: Vital Signs Temp Pulse Resp BP Pulse Ox 09/02/19 18:49 97.8 F 93 18 133/84 99 - My Orders Last 24 Hours: My Active Orders 09/02/19 18:55 CULTURE URINE [RM] Stat - Assessment/Plan Last 24 Hours: My Active Orders 09/02/19 18:55 CULTURE URINE [RM] Stat
[2019-09-02 20:23] LABS: ACETAMINOPHEN <2.0 ug/mL; BLOOD UREA NITROGEN,BUN 14 mg/dL (7.0-18.0); CARBON DIOXIDE,CO2 20.2 mmol/L (21.0-32.0); CHLORIDE,CL 100 mmol/L (98-107); GLUCOSE RANDOM 306 mg/dL (74-106); POTASSIUM,K 4.4 mmol/L (3.5-5.1); SODIUM,NA 136 mmol/L (136-145)
== END 2019-09-02 21:00 ==
LOC: MW.ED 18:43
DX: R45.851 Suicidal ideations (principal); Z91.14 Patient's other noncompliance with medication regimen; I10 Essential (primary) hypertension; E66.9 Obesity, unspecified; Z88.1 Allergy status to other antibiotic agents; Z88.0 Allergy status to penicillin; Z91.040 Latex allergy status; Z79.899 Other long term (current) drug therapy
CPT/HCPCS: 36415; 80053; 80305-QW; 80307; 81001; 81025; 84443; 85025; 87086; 99284; 99285